=== PATIENT | female | born 1945 | race African-American/Black ===

== ENCOUNTER 2017-04-19 11:38 | Inpatient (IN) | payer MEDICARE, MEDICAID ==
[~2017-04-19] VITALS: Ht 162.6 cm; Wt 58.1 kg
[~2017-04-19 11:38] MED LIST: ALBU90AE IH; ALPR-392 PO; AMLO5TAB4 PO; ANAS1TAB7 PO; CARV3.1242 PO; CLOP75TA16 PO; FAMO20TA8 PO; HYDR-4135 PO; ISOS30TA6 PO; LORA1TAB PO; OMEP40CA34 PO; SEVE800T8 PO; TAP5 PO; TIOT18CA3 INH
[2017-04-19 14:31] LABS: EOSINOPHILS % 1.9 % (0.0-5.0); HEMATOCRIT. 30.7 % (36.0-48.0); HEMOGLOBIN. 9.8 g/dL (12.0-16.0); LYMPHOCYTES % 18.7 % (20.0-50.0); MEAN CORPUSCULAR HEMOGLOBIN 27.9 pg (28.0-32.0); MEAN CORPUSCULAR VOLUME 87.3 fL (81.0-99.0); MEAN PLATELET VOLUME 8.2 fl (7.4-10.4); MONOCYTES % 10.6 % (2.0-8.0); NEUTROPHILS % 67.8 % (40.0-76.0); PLATELET 217 x1000/uL (130-400); RED BLOOD CELL COUNT 3.51 mill/uL (4.2-5.4); RED CELL DISTRIBUTION WIDTH 18.2 % (11.6-14.6)
[2017-04-19 14:40] LABS: INR 1.9; PROTHROMBIN TIME 19.4 sec (9.4-11.6)
[2017-04-19 14:43] LABS: CHLORIDE 102 mEq/L (98-107)
[2017-04-19 14:48] LABS: TROPONIN I 0.06 ng/mL (0.00-0.04)
[2017-04-19 15:14] LABS: HEPATITIS B SURFACE ANTIGEN NEGATIVE
[2017-04-19 15:41] LABS: HEPATITIS B CORE AB IGM NEGATIVE
[2017-04-19 15:43] LABS: HEPATITIS A AB IGM NEGATIVE (NEGATIVE)
[2017-04-19] MEDS ORDERED: ACETAMINOPHEN 325MG TABLET PO PRN (21:15)
[2017-04-19] MEDS ORDERED: CLONIDINE 0.1MG TABLET PO PRN (21:15)
[2017-04-19] MEDS ORDERED: IPRATROPIUM/ALBUTEROL 0.5-3(2.5)MG/3ML NEB HHN PRN (21:15)
[2017-04-19] MEDS ORDERED: MAGNESIUM/ALUMINUM HYDROXIDE/SIMETHICONE 30ML UDC PO PRN (21:15)
[2017-04-19] MEDS ORDERED: LORAZEPAM 0.5MG TABLET PO PRN (21:15)
[2017-04-19] MEDS ORDERED: ONDANSETRON HCL 4MG/2ML VIAL IV PRN (21:15)
[2017-04-19] MEDS ORDERED: DIPHENHYDRAMINE 50MG/ML VIAL IV PRN (21:15)
[2017-04-19 22:10] LABS: T4 FREE 1.46 ng/dL (0.76-1.46)
[2017-04-20] VITALS (7 sets, daily range): BP systolic 106–141; BP diastolic 75–90
[2017-04-20] MEDS: SODIUM CHLORIDE 0.9% INJ 3ML FLUSH IVF SCH ×3 (06:23→22:59)
[2017-04-20] MEDS: SEVELAMER CARBONATE 800 MG TABLET PO SCH ×3 (08:37→18:34)
[2017-04-20] MEDS: CARVEDILOL 3.125 MG TABLET PO SCH ×2 (09:00→20:01)
[2017-04-20] MEDS: PANTOPRAZOLE SODIUM 40 MG/VIAL IV SCH (09:03)
[2017-04-20] MEDS: CLOPIDOGREL 75MG TABLET PO SCH (09:03)
[2017-04-20] MEDS: METHIMAZOLE 5MG TABLET PO SCH (09:04)
[2017-04-20] MEDS: ALPRAZOLAM 0.5 MG TABLET PO SCH ×2 (09:06→17:50)
[2017-04-20] MEDS: NITROGLYCERIN OINT 1GM/INCH UDPKT TD SCH ×2 (15:18→23:00)
[2017-04-21 00:01] VITALS: BP 112/66
[2017-04-21 04:00] VITALS: BP 104/69
[2017-04-21] MEDS: NITROGLYCERIN OINT 1GM/INCH UDPKT TD SCH (05:16)
[2017-04-21] MEDS: SODIUM CHLORIDE 0.9% INJ 3ML FLUSH IVF SCH (05:17)
[2017-04-21 08:00] VITALS: BP 134/79
[2017-04-21] MEDS: SEVELAMER CARBONATE 800 MG TABLET PO SCH (08:19)
[2017-04-21 08:49] VITALS: BP 134/79
[2017-04-21] MEDS: PANTOPRAZOLE SODIUM 40 MG/VIAL IV SCH (09:00)
[2017-04-21] MEDS: CARVEDILOL 3.125 MG TABLET PO SCH (09:12)
[2017-04-21] MEDS: ALPRAZOLAM 0.5 MG TABLET PO SCH (09:12)
[2017-04-21] MEDS: METHIMAZOLE 5MG TABLET PO SCH (09:12)
[2017-04-21] MEDS: CLOPIDOGREL 75MG TABLET PO SCH (09:12)
== END 2017-04-21 09:24 | disposition home or self-care (01) | DRG 291 ==
LOC: ER 11:45 → 7WST 20:07
PROVIDERS: ADMIT Internal Medicine; ATTEND Internal Medicine
DX: I13.2 Hypertensive heart and chronic kidney disease with heart failure and with stage 5 chronic kidney disease, or end stage renal disease (principal); I50.23 Acute on chronic systolic (congestive) heart failure; E11.22 Type 2 diabetes mellitus with diabetic chronic kidney disease; E11.40 Type 2 diabetes mellitus with diabetic neuropathy, unspecified; E88.09 Other disorders of plasma-protein metabolism, not elsewhere classified; I27.20 Pulmonary hypertension, unspecified; N18.6 End stage renal disease; E87.8 Other disorders of electrolyte and fluid balance, not elsewhere classified; E03.9 Hypothyroidism, unspecified; F41.1 Generalized anxiety disorder; I25.10 Atherosclerotic heart disease of native coronary artery without angina pectoris; I25.5 Ischemic cardiomyopathy; K21.9 Gastro-esophageal reflux disease without esophagitis; E05.90 Thyrotoxicosis, unspecified without thyrotoxic crisis or storm; J44.9 Chronic obstructive pulmonary disease, unspecified; I34.0 Nonrheumatic mitral (valve) insufficiency; Z87.891 Personal history of nicotine dependence; Z85.3 Personal history of malignant neoplasm of breast; Z99.2 Dependence on renal dialysis; Z79.899 Other long term (current) drug therapy; Z88.8 Allergy status to other drugs, medicaments and biological substances; Z87.01 Personal history of pneumonia (recurrent); Z87.440 Personal history of urinary (tract) infections
CPT/HCPCS: 36415; 71045; 80053; 82962; 83036; 83735; 83880; 84439; 84443; 84484; 85025; 85610; 86705; 86709; 86803; 87040; 87340; 93005; 99285; C9113; J7030; J7620

== ENCOUNTER 2017-05-11 11:01 | Inpatient (IN) | payer MEDICARE, MEDICAID ==
[~2017-05-11] VITALS: Ht 162.6 cm; Wt 62.1 kg
[2017-05-11 11:50] LABS: BASOPHILS % 0.6 % (0.0-2.0); EOSINOPHILS % 0.1 % (0.0-5.0); HEMATOCRIT. 40.2 % (36.0-48.0); LYMPHOCYTES % 15.6 % (20.0-50.0); MEAN CORPUSCULAR HEMOGLOBIN 29.6 pg (28.0-32.0); MEAN CORPUSCULAR VOLUME 91.4 fL (81.0-99.0); MEAN PLATELET VOLUME 8.8 fl (7.4-10.4); MONOCYTES % 7.4 % (2.0-8.0); NEUTROPHILS % 76.3 % (40.0-76.0); PLATELET 275 x1000/uL (130-400); RED CELL DISTRIBUTION WIDTH 20.3 % (11.6-14.6)
[2017-05-11 11:54] LABS: INR 2.6; PROTHROMBIN TIME 26.7 sec (9.4-11.6)
[2017-05-11 12:00] LABS: CHLORIDE 90 mEq/L (98-107)
[2017-05-11 12:50] LABS: BG BASE EXCESS 2.1 mmol/L (-2.0-2.0); BG CARBOXYHEMOGLOBIN 1.1 % (0.5-1.5); BG DEOXYHEMOGLOBIN 8.4 % (0.0-5.0); BG FRACTION INSPIRED OXYGEN 40; BG METHEMOGLOBIN 0.4 % (0.0-1.5); BG OXYGEN SATURATION 91.5 % (92.0-98.5); BG OXYHEMOGLOBIN 90.1 % (94.0-97.0); BG PCO2 33.6 mmHg (35.0-45.0); BG PO2 65.3 mmHg (75.0-100.0); BG SAMPLE SITE RIGHT BRACHIAL; BG TOTAL HEMOGLOBIN 13.1 g/dL (12.0-18.0); BG VENT MODE NASAL CANNULA
[2017-05-11] MEDS ORDERED: CALCIUM GLUCONATE 100MG/ML 10ML VIAL IV ONE (13:45)
[2017-05-11] MEDS: AMLODIPINE 5MG TABLET PO SCH (17:00)
[2017-05-11] MEDS ORDERED: ENOXAPARIN 40MG/0.4ML SYR SUBCUT SCH (17:15)
[2017-05-11] MEDS ORDERED: ACETAMINOPHEN 325MG TABLET PO PRN (17:15)
[2017-05-11] MEDS ORDERED: GUAIFENESIN 200MG/10ML SUGAR FREE UDC PO PRN (17:15)
[2017-05-11] MEDS ORDERED: DIPHENHYDRAMINE 50MG/ML VIAL IV PRN (17:15)
[2017-05-11] MEDS ORDERED: CLONIDINE 0.1MG TABLET PO PRN (17:15)
[2017-05-11] MEDS ORDERED: MAGNESIUM/ALUMINUM HYDROXIDE/SIMETHICONE 30ML UDC PO PRN (17:15)
[2017-05-11] MEDS ORDERED: DOCUSATE SODIUM 100MG CAPSULE PO PRN (17:15)
[2017-05-11] MEDS ORDERED: ONDANSETRON HCL 4MG/2ML VIAL IV PRN (17:15)
[2017-05-11] MEDS ORDERED: NA PHOS,M-B/NA PHOS,DI-BA ENEMA 118ML PR PRN (21:00)
[2017-05-12] VITALS (9 sets, daily range): BP systolic 102–137; BP diastolic 38–95
[2017-05-12] MEDS ORDERED: HYDROMORPHONE HCL/PF 2MG/ML CPJ IV PRN (05:48)
[2017-05-12] MEDS ORDERED: HYDROCODONE/ACETAMINOPHEN 10/325MG TABLET PO PRN (05:48)
[2017-05-12 07:22] LABS: BASOPHILS % 0.6 % (0.0-2.0); EOSINOPHILS % 0.1 % (0.0-5.0); HEMATOCRIT. 38.6 % (36.0-48.0); HEMOGLOBIN. 12.6 g/dL (12.0-16.0); LYMPHOCYTES % 18.1 % (20.0-50.0); MEAN CORPUSCULAR HEMOGLOBIN 29.6 pg (28.0-32.0); MEAN CORPUSCULAR VOLUME 90.3 fL (81.0-99.0); MEAN PLATELET VOLUME 9.1 fl (7.4-10.4); MONOCYTES % 7.1 % (2.0-8.0); NEUTROPHILS % 74.1 % (40.0-76.0); PLATELET 247 x1000/uL (130-400); RED BLOOD CELL COUNT 4.27 mill/uL (4.2-5.4); RED CELL DISTRIBUTION WIDTH 19.7 % (11.6-14.6)
[2017-05-12 07:31] LABS: CHLORIDE 90 mEq/L (98-107)
[2017-05-12 07:48] LABS: HDL CHOLESTEROL 39 mg/dL (40-59); LDL CHOLESTEROL 63 mg/dL (5-100); T4 FREE 1.26 ng/dL (0.76-1.46)
[2017-05-12] MEDS ORDERED: ASPIRIN 81MG EC TABLET PO SCH (09:00)
[2017-05-12] MEDS ORDERED: HEPARIN SODIUM 1,000 UNIT/1ML VIAL IV SCH (09:45)
[2017-05-12] MEDS: AMLODIPINE 5MG TABLET PO SCH ×2 (12:33→17:00)
[2017-05-12] MEDS: CLOPIDOGREL 75MG TABLET PO SCH (12:33)
[2017-05-12] MEDS: ASPIRIN 81MG EC TABLET PO SCH (12:33)
[2017-05-12] MEDS: ENOXAPARIN 30MG/0.3ML SYR SUBCUT SCH (12:34)
[2017-05-12] MEDS ORDERED: CALCIUM GLUCONATE 100MG/ML 10ML VIAL IV ONE (14:00)
[2017-05-12] MEDS ORDERED: CALCIUM GLUCONATE 2,000 MG in DEXT 5% WATER 80 ML IV SCH (15:00)
[2017-05-12] MEDS ORDERED: ERGO2000 PO (15:20)
[2017-05-12] MEDS ORDERED: HYDR-4135 PO (15:25)
[2017-05-12] MEDS ORDERED: ROSU20TA PO (15:25)
[2017-05-12] MEDS ORDERED: ISOS20TA8 GT (15:25)
[2017-05-12] MEDS ORDERED: METH5TAB68 PO (15:25)
[2017-05-12] MEDS ORDERED: COR3 PO (15:25)
[2017-05-12] MEDS ORDERED: CLOP75TA16 PO (15:25)
[2017-05-12] MEDS ORDERED: SEVE800T8 PO (15:25)
[2017-05-12] MEDS ORDERED: ERGOCALCIFEROL 50000UNITS CAPSULE PO NR (16:00)
[2017-05-12] MEDS: CALCIUM CARBONATE 1250MG TABLET (500MG ELEMENTAL CALCIUM) PO SCH (17:36)
[2017-05-12] MEDS: LORAZEPAM 2MG/ML CPJ IV PRN (18:26)
[2017-05-13] VITALS (17 sets, daily range): BP systolic 103–136; BP diastolic 48–84
[2017-05-13] MEDS: LORAZEPAM 2MG/ML CPJ IV PRN ×2 (00:25→10:50)
[2017-05-13 07:12] LABS: BASOPHILS % 0.8 % (0.0-2.0); EOSINOPHILS % 0.3 % (0.0-5.0); HEMATOCRIT. 37.3 % (36.0-48.0); HEMOGLOBIN. 12.1 g/dL (12.0-16.0); MEAN CORPUSCULAR HEMOGLOBIN 29.1 pg (28.0-32.0); MEAN CORPUSCULAR VOLUME 89.9 fL (81.0-99.0); MEAN PLATELET VOLUME 9.4 fl (7.4-10.4); MONOCYTES % 11.3 % (2.0-8.0); NEUTROPHILS % 62.6 % (40.0-76.0); PLATELET 210 x1000/uL (130-400); RED BLOOD CELL COUNT 4.15 mill/uL (4.2-5.4)
[2017-05-13] MEDS: ENOXAPARIN 30MG/0.3ML SYR SUBCUT SCH (09:07)
[2017-05-13] MEDS: AMLODIPINE 5MG TABLET PO SCH ×2 (09:10→09:16)
[2017-05-13] MEDS: ASPIRIN 81MG EC TABLET PO SCH (09:11)
[2017-05-13] MEDS: CALCIUM CARBONATE 1250MG TABLET (500MG ELEMENTAL CALCIUM) PO SCH ×2 (09:17→17:24)
[2017-05-13] MEDS: CLOPIDOGREL 75MG TABLET PO SCH (09:18)
[2017-05-13] MEDS ORDERED: CALCIUM GLUCONATE 100MG/ML 10ML VIAL IV ONE (13:15)
[2017-05-13] MEDS ORDERED: CALCIUM GLUCONATE 1000 MG in DEXTROSE 5% WATER 100 ML IV NR (14:30)
[2017-05-13] MEDS ORDERED: CLONAZEPAM 0.5MG TABLET PO PRN (15:15)
[2017-05-13] MEDS ORDERED: CALCIUM ACETATE 667MG CAPSULE PO ONE (17:20)
[2017-05-14] VITALS (12 sets, daily range): BP systolic 107–129; BP diastolic 70–83
[2017-05-14] MEDS: LORAZEPAM 2MG/ML CPJ IV PRN ×3 (00:06→20:25)
[2017-05-14 06:43] LABS: AMMONIA 46 uMol/L (<32)
[2017-05-14 06:50] LABS: BASOPHILS % 0.6 % (0.0-2.0); EOSINOPHILS % 0.7 % (0.0-5.0); HEMATOCRIT. 36.7 % (36.0-48.0); LYMPHOCYTES % 27.9 % (20.0-50.0); MEAN CORPUSCULAR HEMOGLOBIN 29.2 pg (28.0-32.0); MEAN CORPUSCULAR VOLUME 89.2 fL (81.0-99.0); MEAN PLATELET VOLUME 9.7 fl (7.4-10.4); MONOCYTES % 10.5 % (2.0-8.0); NEUTROPHILS % 60.3 % (40.0-76.0); PLATELET 219 x1000/uL (130-400); RED BLOOD CELL COUNT 4.11 mill/uL (4.2-5.4); RED CELL DISTRIBUTION WIDTH 19.8 % (11.6-14.6)
[2017-05-14] MEDS: CLOPIDOGREL 75MG TABLET PO SCH (08:18)
[2017-05-14] MEDS: ASPIRIN 81MG EC TABLET PO SCH (08:23)
[2017-05-14] MEDS: CALCIUM CARBONATE 1250MG TABLET (500MG ELEMENTAL CALCIUM) PO SCH ×2 (08:25→18:01)
[2017-05-14] MEDS: ENOXAPARIN 30MG/0.3ML SYR SUBCUT SCH (08:25)
[2017-05-14] MEDS: AMLODIPINE 5MG TABLET PO SCH ×2 (09:00→18:01)
[2017-05-14] MEDS ORDERED: CARVEDILOL 3.125 MG TABLET PO SCH ×2 (10:00→21:00)
[2017-05-14] MEDS ORDERED: CALCIUM GLUCONATE 1,000 MG in DEXT 5% WATER 90 ML IV SCH (11:00)
[2017-05-14] MEDS: LACTULOSE 20G/30ML UDC PO PRN (12:23)
[2017-05-14] MEDS: CALCIUM ACETATE 667MG CAPSULE PO SCH ×2 (13:54→18:00)
[2017-05-14] MEDS: CARVEDILOL 3.125 MG TABLET PO SCH (18:00)
[2017-05-14] MEDS: ATORVASTATIN CALCIUM 10MG TABLET PO SCH (20:18)
[2017-05-15] VITALS (12 sets, daily range): BP systolic 99–147; BP diastolic 60–90
[2017-05-15] MEDS: LORAZEPAM 2MG/ML CPJ IV PRN (01:49)
[2017-05-15] MEDS: IPRATROPIUM/ALBUTEROL 0.5-3(2.5)MG/3ML NEB INH PRN ×2 (02:54→09:06)
[2017-05-15] MEDS: CARVEDILOL 3.125 MG TABLET PO SCH ×2 (06:43→17:50)
[2017-05-15] MEDS: CALCIUM CARBONATE 1250MG TABLET (500MG ELEMENTAL CALCIUM) PO SCH ×2 (09:35→17:47)
[2017-05-15] MEDS: ENOXAPARIN 30MG/0.3ML SYR SUBCUT SCH (09:35)
[2017-05-15] MEDS: CLOPIDOGREL 75MG TABLET PO SCH (09:35)
[2017-05-15] MEDS: ASPIRIN 81MG EC TABLET PO SCH (09:35)
[2017-05-15] MEDS: CALCIUM ACETATE 667MG CAPSULE PO SCH ×3 (09:59→17:47)
[2017-05-15] MEDS: AMLODIPINE 5MG TABLET PO SCH ×2 (10:00→17:50)
[2017-05-15] MEDS ORDERED: IPRATROPIUM/ALBUTEROL 0.5-3(2.5)MG/3ML NEB HHN PRN (11:45)
[2017-05-15] MEDS: IPRATROPIUM/ALBUTEROL 0.5-3(2.5)MG/3ML NEB HHN SCH ×3 (11:56→21:11)
[2017-05-15] MEDS: METHYLPREDNISOLONE SOD SUCC 125 MG/2 ML VIAL IV SCH (11:58)
[2017-05-15 12:03] LABS: BG BASE EXCESS 2.3 mmol/L (-2.0-2.0); BG BILEVEL POS AIRWAY PRESSURE 15/5; BG CARBOXYHEMOGLOBIN 0.6 % (0.5-1.5); BG DEOXYHEMOGLOBIN 4.4 % (0.0-5.0); BG FRACTION INSPIRED OXYGEN 40; BG HCO3 ACT 26.6 mmol/L (22.0-26.0); BG METHEMOGLOBIN 0.3 % (0.0-1.5); BG OXYGEN SATURATION 95.6 % (92.0-98.5); BG OXYHEMOGLOBIN 94.7 % (94.0-97.0); BG PCO2 40.2 mmHg (35.0-45.0); BG PH 7.439 (7.350-7.450); BG PO2 84.2 mmHg (75.0-100.0); BG SAMPLE SITE RIGHT RADIAL; BG TOTAL HEMOGLOBIN 13.6 g/dL (12.0-18.0); BG VENT MODE MASK - BIPAP; BG VENT RATE 16 set
[2017-05-15] MEDS: ATORVASTATIN CALCIUM 10MG TABLET PO SCH (20:14)
[2017-05-16] VITALS (14 sets, daily range): BP systolic 105–119; BP diastolic 71–84
[2017-05-16] MEDS: IPRATROPIUM/ALBUTEROL 0.5-3(2.5)MG/3ML NEB HHN SCH ×6 (00:10→20:24)
[2017-05-16] MEDS: METHYLPREDNISOLONE SOD SUCC 125 MG/2 ML VIAL IV SCH ×4 (00:18→21:58)
[2017-05-16] MEDS: CARVEDILOL 3.125 MG TABLET PO SCH ×2 (06:57→17:56)
[2017-05-16 07:05] LABS: BASOPHILS % 0.3 % (0.0-2.0); EOSINOPHILS % 0.2 % (0.0-5.0); HEMATOCRIT. 37.5 % (36.0-48.0); HEMOGLOBIN. 12.2 g/dL (12.0-16.0); LYMPHOCYTES % 10.6 % (20.0-50.0); MEAN CORPUSCULAR HEMOGLOBIN 29.7 pg (28.0-32.0); MEAN CORPUSCULAR VOLUME 91.4 fL (81.0-99.0); MEAN PLATELET VOLUME 10.5 fl (7.4-10.4); MONOCYTES % 3.1 % (2.0-8.0); NEUTROPHILS % 85.8 % (40.0-76.0); PLATELET 122 x1000/uL (130-400); RED CELL DISTRIBUTION WIDTH 20.2 % (11.6-14.6)
[2017-05-16] MEDS: ASPIRIN 81MG EC TABLET PO SCH (08:28)
[2017-05-16] MEDS: CALCIUM CARBONATE 1250MG TABLET (500MG ELEMENTAL CALCIUM) PO SCH ×2 (08:28→17:43)
[2017-05-16] MEDS: ENOXAPARIN 30MG/0.3ML SYR SUBCUT SCH (08:28)
[2017-05-16] MEDS: AMLODIPINE 5MG TABLET PO SCH ×2 (08:28→17:00)
[2017-05-16] MEDS: CALCIUM ACETATE 667MG CAPSULE PO SCH ×3 (08:28→17:45)
[2017-05-16] MEDS: CLOPIDOGREL 75MG TABLET PO SCH (08:28)
[2017-05-16] MEDS ORDERED: BISACODYL 5MG TABLET PO PRN (11:00)
[2017-05-16] MEDS: DOCUSATE SODIUM 100MG CAPSULE PO SCH ×2 (11:16→17:43)
[2017-05-16] MEDS: LACTULOSE 20G/30ML UDC PO PRN (12:07)
[2017-05-16] MEDS: ALPRAZOLAM 0.25 MG TABLET PO SCH ×4 (15:00→23:26)
[2017-05-16] MEDS: ATORVASTATIN CALCIUM 10MG TABLET PO SCH (21:58)
[2017-05-17] VITALS (12 sets, daily range): BP systolic 106–121; BP diastolic 68–84
[2017-05-17] MEDS: IPRATROPIUM/ALBUTEROL 0.5-3(2.5)MG/3ML NEB HHN SCH ×6 (00:42→19:47)
[2017-05-17] MEDS: CARVEDILOL 3.125 MG TABLET PO SCH ×2 (06:30→17:57)
[2017-05-17] MEDS: CALCIUM ACETATE 667MG CAPSULE PO SCH ×3 (06:30→17:57)
[2017-05-17] MEDS: METHYLPREDNISOLONE SOD SUCC 125 MG/2 ML VIAL IV SCH ×3 (06:31→21:01)
[2017-05-17 07:16] LABS: HEMOGLOBIN. 12.2 g/dL (12.0-16.0); MEAN CORPUSCULAR HEMOGLOBIN 29.7 pg (28.0-32.0); MEAN CORPUSCULAR VOLUME 92.4 fL (81.0-99.0); MEAN PLATELET VOLUME 10.5 fl (7.4-10.4); PLATELET 106 x1000/uL (130-400); RED BLOOD CELL COUNT 4.11 mill/uL (4.2-5.4); RED CELL DISTRIBUTION WIDTH 20.6 % (11.6-14.6)
[2017-05-17] MEDS: DOCUSATE SODIUM 100MG CAPSULE PO SCH ×2 (08:59→17:58)
[2017-05-17] MEDS: CALCIUM CARBONATE 1250MG TABLET (500MG ELEMENTAL CALCIUM) PO SCH ×2 (09:00→17:58)
[2017-05-17] MEDS: AMLODIPINE 5MG TABLET PO SCH ×2 (09:00→17:58)
[2017-05-17] MEDS: ASPIRIN 81MG EC TABLET PO SCH (09:00)
[2017-05-17] MEDS: CLOPIDOGREL 75MG TABLET PO SCH (09:01)
[2017-05-17] MEDS: ENOXAPARIN 30MG/0.3ML SYR SUBCUT SCH (09:02)
[2017-05-17 09:46] LABS: PLATELET ESTIMATE DECREASED
[2017-05-17] MEDS: ALPRAZOLAM 0.25 MG TABLET PO SCH ×3 (10:31→21:01)
[2017-05-17] MEDS ORDERED: HEPARIN SODIUM 1,000 UNIT/1ML VIAL IV NR (15:00)
[2017-05-17] MEDS: ATORVASTATIN CALCIUM 10MG TABLET PO SCH (20:59)
[2017-05-18] VITALS (12 sets, daily range): BP systolic 104–123; BP diastolic 51–92
[2017-05-18] MEDS: IPRATROPIUM/ALBUTEROL 0.5-3(2.5)MG/3ML NEB HHN SCH ×6 (00:09→21:54)
[2017-05-18] MEDS: ALPRAZOLAM 0.25 MG TABLET PO SCH ×4 (06:00→22:00)
[2017-05-18 06:20] LABS: HEMATOCRIT. 40.2 % (36.0-48.0); HEMOGLOBIN. 12.8 g/dL (12.0-16.0); MEAN CORPUSCULAR HEMOGLOBIN 29.6 pg (28.0-32.0); MEAN CORPUSCULAR VOLUME 92.7 fL (81.0-99.0); MEAN PLATELET VOLUME 10.7 fl (7.4-10.4); PLATELET 90 x1000/uL (130-400); RED BLOOD CELL COUNT 4.34 mill/uL (4.2-5.4); RED CELL DISTRIBUTION WIDTH 21.5 % (11.6-14.6)
[2017-05-18] MEDS: CALCIUM ACETATE 667MG CAPSULE PO SCH ×3 (06:22→17:59)
[2017-05-18] MEDS: METHYLPREDNISOLONE SOD SUCC 125 MG/2 ML VIAL IV SCH (06:23)
[2017-05-18] MEDS: CARVEDILOL 3.125 MG TABLET PO SCH ×2 (06:30→18:01)
[2017-05-18] MEDS: CLOPIDOGREL 75MG TABLET PO SCH (09:09)
[2017-05-18] MEDS: DOCUSATE SODIUM 100MG CAPSULE PO SCH ×2 (09:09→18:00)
[2017-05-18] MEDS: CALCIUM CARBONATE 1250MG TABLET (500MG ELEMENTAL CALCIUM) PO SCH ×2 (09:09→18:00)
[2017-05-18] MEDS: ASPIRIN 81MG EC TABLET PO SCH (09:09)
[2017-05-18] MEDS: ENOXAPARIN 30MG/0.3ML SYR SUBCUT SCH (09:09)
[2017-05-18] MEDS: AMLODIPINE 5MG TABLET PO SCH ×2 (09:10→18:02)
[2017-05-18 10:53] LABS: BG BASE EXCESS 3.5 mmol/L (-2.0-2.0); BG CARBOXYHEMOGLOBIN 0.9 % (0.5-1.5); BG DEOXYHEMOGLOBIN 6.6 % (0.0-5.0); BG FRACTION INSPIRED OXYGEN 21; BG HCO3 ACT 24.4 mmol/L (22.0-26.0); BG METHEMOGLOBIN 0.2 % (0.0-1.5); BG OXYGEN SATURATION 93.3 % (92.0-98.5); BG OXYHEMOGLOBIN 92.3 % (94.0-97.0); BG PCO2 27.1 mmHg (35.0-45.0); BG PH 7.573 (7.350-7.450); BG PO2 68.3 mmHg (75.0-100.0); BG SAMPLE SITE RIGHT BRACHIAL; BG TOTAL HEMOGLOBIN 13.6 g/dL (12.0-18.0); BG VENT MODE ROOM AIR
[2017-05-18 12:48] LABS: CREATINE KINASE MB FRACTION 0.7 ng/mL (0.5-3.6)
[2017-05-18 15:15] LABS: PLATELET ESTIMATE DECREASED
[2017-05-18] MEDS: PREDNISONE 20MG TABLET PO SCH (18:02)
[2017-05-18] MEDS: ATORVASTATIN CALCIUM 10MG TABLET PO SCH (22:19)
[2017-05-19] VITALS (10 sets, daily range): BP systolic 108–127; BP diastolic 36–90
[2017-05-19] MEDS: ALPRAZOLAM 0.25 MG TABLET PO SCH ×3 (01:51→12:54)
[2017-05-19] MEDS: IPRATROPIUM/ALBUTEROL 0.5-3(2.5)MG/3ML NEB HHN SCH ×3 (05:50→10:58)
[2017-05-19] MEDS: CARVEDILOL 3.125 MG TABLET PO SCH (06:19)
[2017-05-19] MEDS: CALCIUM ACETATE 667MG CAPSULE PO SCH ×2 (06:19→12:51)
[2017-05-19] MEDS: DOCUSATE SODIUM 100MG CAPSULE PO SCH (08:53)
[2017-05-19] MEDS: AMLODIPINE 5MG TABLET PO SCH (08:53)
[2017-05-19] MEDS: ASPIRIN 81MG EC TABLET PO SCH (08:53)
[2017-05-19] MEDS: PREDNISONE 20MG TABLET PO SCH (08:53)
[2017-05-19] MEDS: CLOPIDOGREL 75MG TABLET PO SCH (08:53)
[2017-05-19] MEDS: CALCIUM CARBONATE 1250MG TABLET (500MG ELEMENTAL CALCIUM) PO SCH (08:53)
[2017-05-19] MEDS: ENOXAPARIN 30MG/0.3ML SYR SUBCUT SCH (08:54)
[2017-05-19] MEDS ORDERED: HEPARIN SODIUM 1,000 UNIT/1ML VIAL IV SCH (13:15)
[2017-05-20] MEDS ORDERED: PREDNISONE 20MG TABLET PO SCH (09:00)
[2017-05-20 09:06] LABS: ANGIOTENSION CONVERTING ENZYME 35 U/L (14-82); ANTI-DNA DOUBLE STRANDED QUANT < 1 IU/mL (0-9); ANTI-NUCLEAR ANTIBODIES DIRECT Negative (Negative); DRVVT LA 70.9 sec (0.0-47.0); PTT-LA 48.5 sec (0.0-51.9)
[2017-05-20 13:07] LABS: ANTI-MYELOPEROXIDASE AB < 9.0 U/mL (0.0-9.0); ANTI-PROTEINASE 3 ABS < 3.5 U/mL (0.0-3.5)
[2017-05-20 14:20] LABS: ATYPICAL P-ANCA <1:20 titer (Neg:<1:20); CYTOPLASMIC C-ANCA <1:20 titer (Neg:<1:20); PERINUCLEAR P-ANCA <1:20 titer (Neg:<1:20)
[2017-05-21 10:09] LABS: LUPUS ANTICOAG INTERPRETATION Comment: (.)
== END 2017-05-19 17:45 | disposition home or self-care (01) | DRG 280 ==
LOC: ER 11:01 → EDBEDREQ 13:46 → EDBEDREQTM 13:46 → 3WST 15:41 → MERGE 15:41 → EDBEDREQSVC 15:42 → EDBEDREQ 15:42 → EDBEDREQTM 15:42 → ENRESERV 05-12 03:45
PROVIDERS: ADMIT Internal Medicine; ATTEND Internal Medicine
PROC: 5A09357 Assistance with Respiratory Ventilation, Less than 24 Consecutive Hours, Continuous Positive Airway Pressure (ICD-10-PCS; 2017-05-12)
PROC: 5A1D70Z Performance of Urinary Filtration, Intermittent, Less than 6 Hours Per Day (ICD-10-PCS; 2017-05-12)
PROC: 4A00X4Z Measurement of Central Nervous Electrical Activity, External Approach (ICD-10-PCS; principal; 2017-05-14)
PROC: 5A1D70Z Performance of Urinary Filtration, Intermittent, Less than 6 Hours Per Day (ICD-10-PCS; 2017-05-14)
PROC: 5A09357 Assistance with Respiratory Ventilation, Less than 24 Consecutive Hours, Continuous Positive Airway Pressure (ICD-10-PCS; 2017-05-15)
PROC: 5A09357 Assistance with Respiratory Ventilation, Less than 24 Consecutive Hours, Continuous Positive Airway Pressure (ICD-10-PCS; 2017-05-17)
PROC: 5A1D70Z Performance of Urinary Filtration, Intermittent, Less than 6 Hours Per Day (ICD-10-PCS; 2017-05-17)
PROC: 5A1D70Z Performance of Urinary Filtration, Intermittent, Less than 6 Hours Per Day (ICD-10-PCS; 2017-05-18)
PROC: 5A1D70Z Performance of Urinary Filtration, Intermittent, Less than 6 Hours Per Day (ICD-10-PCS; 2017-05-19)
DX: I21.4 Non-ST elevation (NSTEMI) myocardial infarction (principal); J96.01 Acute respiratory failure with hypoxia; I13.2 Hypertensive heart and chronic kidney disease with heart failure and with stage 5 chronic kidney disease, or end stage renal disease; E46 Unspecified protein-calorie malnutrition; E87.3 Alkalosis; E11.21 Type 2 diabetes mellitus with diabetic nephropathy; E83.39 Other disorders of phosphorus metabolism; I27.20 Pulmonary hypertension, unspecified; N18.6 End stage renal disease; I50.22 Chronic systolic (congestive) heart failure; E87.5 Hyperkalemia; E83.51 Hypocalcemia; I25.5 Ischemic cardiomyopathy; I25.10 Atherosclerotic heart disease of native coronary artery without angina pectoris; C50.912 Malignant neoplasm of unspecified site of left female breast; E05.90 Thyrotoxicosis, unspecified without thyrotoxic crisis or storm; E11.22 Type 2 diabetes mellitus with diabetic chronic kidney disease; E78.00 Pure hypercholesterolemia, unspecified; E78.5 Hyperlipidemia, unspecified; F41.9 Anxiety disorder, unspecified; G25.3 Myoclonus; I34.0 Nonrheumatic mitral (valve) insufficiency; M94.0 Chondrocostal junction syndrome [Tietze]; T45.1X5A Adverse effect of antineoplastic and immunosuppressive drugs, initial encounter; Z95.5 Presence of coronary angioplasty implant and graft; Z79.02 Long term (current) use of antithrombotics/antiplatelets; Z79.82 Long term (current) use of aspirin; Z79.899 Other long term (current) drug therapy; Z99.2 Dependence on renal dialysis; Z88.8 Allergy status to other drugs, medicaments and biological substances; Z68.23 Body mass index [BMI] 23.0-23.9, adult
CPT/HCPCS: 36415; 36600; 70450; 71045; 78580; 80048; 80053; 80061; 82140; 82164; 82375; 82550; 82553; 82805; 83520; 83735; 84100; 84439; 84443; 84484; 85025; 85379; 85610; 85613; 85651; 85660; 85732; 86038; 86140; 86225; 86256; 93005; 93306; 94640; 94660; 96374; 97162; 99291; A6261; J0610; J1644; J1650; J2060; J2930; J7030; J7060; J7512; J7620

== ENCOUNTER 2017-06-10 08:47 | Inpatient (IN) | payer MEDICARE, MEDICAID ==
[~2017-06-10] VITALS: Ht 162.6 cm; Wt 55.8 kg
[~2017-06-10 08:47] MED LIST changes: +COR3 PO; +ERGO2000 PO; +ISOS20TA8 GT; +METH5TAB68 PO; +ROSU20TA PO
[2017-06-10 10:47] LABS: HEMATOCRIT. 37.4 % (36.0-48.0); HEMOGLOBIN. 12.2 g/dL (12.0-16.0); MEAN CORPUSCULAR HEMOGLOBIN 29.8 pg (28.0-32.0); MEAN CORPUSCULAR VOLUME 91.2 fL (81.0-99.0)
[2017-06-10 10:51] LABS: CHLORIDE 98 mEq/L (98-107)
[2017-06-10] MEDS ORDERED: VANCOMYCIN 1,500 MG in DEXT 5% WATER 250 ML IV SCH (11:15)
[2017-06-10] MEDS ORDERED: PIPERACILLIN/TAZOBACTAM 3.375GM/50ML PREMIX IV ONE (11:15)
[2017-06-10] MEDS ORDERED: LEVOFLOXACIN 750MG PREMIX 150 ML IV ONE (11:15)
[2017-06-10 11:35] LABS: PLATELET ESTIMATE NORMAL
[2017-06-10 11:36] LABS: PLATELET 247 x1000/uL (130-400)
[2017-06-10] MEDS ORDERED: PIPERACILLIN/TAZ 3.375G PREMIX 50 ML IV ONE (12:00)
[2017-06-10] MEDS ORDERED: VANCOMYCIN 1 G PREMIX 200 ML IV ONE (12:00)
[2017-06-10 12:27] LABS: INR 2.3; PROTHROMBIN TIME 24.5 sec (9.4-11.6)
[2017-06-10] MEDS ORDERED: LIDOCAINE HCL/PF 1% 10 MG/ML 5ML VIAL ONE (14:21)
[2017-06-10 17:49] LABS: CLARITY URINE CLEAR (CLEAR); COLOR URINE DARK YELLOW (YELLOW); KETONES URINE TRACE (NEGATIVE); LEUKOCYTE ESTERASE URINE NEGATIVE (NEGATIVE); NITRITE URINE NEGATIVE (NEGATIVE); OCCULT BLOOD URINE 1+ (NEGATIVE); PH URINE 7.5 (4.5-8.0); PROTEIN URINE 3+ (NEGATIVE); SPECIFIC GRAVITY URINE 1.017 (1.005-1.030)
[2017-06-10] MEDS ORDERED: IOHEXOL-350 100 ML BOTTLE ONE (19:22)
[2017-06-10] MEDS ORDERED: DIPHENHYDRAMINE 50MG/ML VIAL IV PRN (20:30)
[2017-06-10] MEDS ORDERED: ONDANSETRON HCL 4MG/2ML VIAL IV PRN (20:30)
[2017-06-10] MEDS ORDERED: IPRATROPIUM/ALBUTEROL 0.5-3(2.5)MG/3ML NEB INH PRN (20:30)
[2017-06-10] MEDS ORDERED: ACETAMINOPHEN 325MG TABLET PO PRN (20:30)
[2017-06-10] MEDS ORDERED: GUAIFENESIN 200MG/10ML SUGAR FREE UDC PO PRN (20:30)
[2017-06-10] MEDS ORDERED: CLONIDINE 0.1MG TABLET PO PRN (20:30)
[2017-06-10] MEDS ORDERED: MAGNESIUM/ALUMINUM HYDROXIDE/SIMETHICONE 30ML UDC PO PRN (20:30)
[2017-06-10 20:40] VITALS: BP 104/81
[2017-06-10 22:00] VITALS: BP 136/81
[2017-06-10] MEDS ORDERED: BISACODYL 10MG SUPP PR PRN (22:45)
[2017-06-10] MEDS: ATORVASTATIN CALCIUM 10MG TABLET PO SCH (22:52)
[2017-06-10] MEDS: AMLODIPINE 2.5MG TABLET PO SCH (22:53)
[2017-06-10] MEDS: ALPRAZOLAM 0.25 MG TABLET PO SCH (22:53)
[2017-06-10] MEDS: NITROGLYCERIN OINT 1GM/INCH UDPKT TD SCH (22:54)
[2017-06-10] MEDS: SODIUM CHLORIDE 0.9% INJ 3ML FLUSH IVF SCH (22:59)
[2017-06-11] VITALS (12 sets, daily range): BP systolic 107–156; BP diastolic 45–110
[2017-06-11] MEDS: IPRATROPIUM/ALBUTEROL 0.5-3(2.5)MG/3ML NEB HHN SCH ×6 (01:02→21:13)
[2017-06-11] MEDS: ALPRAZOLAM 0.25 MG TABLET PO SCH ×3 (06:00→18:18)
[2017-06-11] MEDS: NITROGLYCERIN OINT 1GM/INCH UDPKT TD SCH ×2 (06:02→14:05)
[2017-06-11] MEDS: SODIUM CHLORIDE 0.9% INJ 3ML FLUSH IVF SCH ×3 (06:03→20:32)
[2017-06-11 08:15] LABS: BASOPHILS % 0.4 % (0.0-2.0); EOSINOPHILS % 0.2 % (0.0-5.0); HEMATOCRIT. 31.2 % (36.0-48.0); HEMOGLOBIN. 10.3 g/dL (12.0-16.0); LYMPHOCYTES % 26.9 % (20.0-50.0); MEAN PLATELET VOLUME 9.4 fl (7.4-10.4); MONOCYTES % 14.9 % (2.0-8.0); NEUTROPHILS % 57.6 % (40.0-76.0); PLATELET 221 x1000/uL (130-400); RED BLOOD CELL COUNT 3.55 mill/uL (4.2-5.4); RED CELL DISTRIBUTION WIDTH 21.3 % (11.6-14.6)
[2017-06-11] MEDS ORDERED: AMLODIPINE 5MG TABLET PO SCH (09:00)
[2017-06-11] MEDS ORDERED: CLOPIDOGREL 75MG TABLET PO SCH ×2 (09:00)
[2017-06-11] MEDS: FAMOTIDINE 20MG TABLET PO SCH ×2 (09:52→18:18)
[2017-06-11] MEDS: ANASTROZOLE 1 MG TABLET PO SCH (09:52)
[2017-06-11] MEDS: SEVELAMER CARBONATE 800 MG TABLET PO SCH ×3 (09:52→18:18)
[2017-06-11] MEDS: METHIMAZOLE 5MG TABLET PO SCH (09:52)
[2017-06-11] MEDS: CLOPIDOGREL 75MG TABLET PO SCH (09:52)
[2017-06-11] MEDS: ISOSORBIDE DINITRATE 20MG TABLET GT SCH ×2 (09:56→13:00)
[2017-06-11] MEDS: CARVEDILOL 3.125 MG TABLET PO SCH ×2 (09:56→17:00)
[2017-06-11] MEDS: ASPIRIN 81MG EC TABLET PO SCH (10:01)
[2017-06-11] MEDS: HYDRALAZINE HCL 50MG TABLET PO SCH ×2 (11:00→13:00)
[2017-06-11] MEDS: AMLODIPINE 2.5MG TABLET PO SCH ×2 (11:00→20:32)
[2017-06-11] MEDS ORDERED: HEPARIN SODIUM 1,000 UNIT/1ML VIAL IV NR (16:45)
[2017-06-11] MEDS: HYDRALAZINE HCL 25MG TABLET PO SCH (17:00)
[2017-06-11] MEDS: ATORVASTATIN CALCIUM 10MG TABLET PO SCH (20:31)
[2017-06-11] MEDS: ISOSORBIDE DINITRATE 20MG TABLET PO SCH (22:25)
[2017-06-12] VITALS (12 sets, daily range): BP systolic 86–122; BP diastolic 64–74
[2017-06-12] MEDS: IPRATROPIUM/ALBUTEROL 0.5-3(2.5)MG/3ML NEB HHN SCH ×5 (00:51→20:34)
[2017-06-12] MEDS: ALPRAZOLAM 0.25 MG TABLET PO SCH ×3 (02:01→18:00)
[2017-06-12] MEDS: ISOSORBIDE DINITRATE 20MG TABLET PO SCH ×3 (06:00→21:32)
[2017-06-12] MEDS: SODIUM CHLORIDE 0.9% INJ 3ML FLUSH IVF SCH ×3 (06:28→22:47)
[2017-06-12 07:18] LABS: BASOPHILS % 0.4 % (0.0-2.0); EOSINOPHILS % 1.1 % (0.0-5.0); HEMATOCRIT. 29.7 % (36.0-48.0); HEMOGLOBIN. 9.9 g/dL (12.0-16.0); MEAN CORPUSCULAR HEMOGLOBIN 29.5 pg (28.0-32.0); MEAN PLATELET VOLUME 9.3 fl (7.4-10.4); MONOCYTES % 13.7 % (2.0-8.0); NEUTROPHILS % 62.8 % (40.0-76.0); PLATELET 170 x1000/uL (130-400); RED BLOOD CELL COUNT 3.34 mill/uL (4.2-5.4); RED CELL DISTRIBUTION WIDTH 20.7 % (11.6-14.6)
[2017-06-12] MEDS: ANASTROZOLE 1 MG TABLET PO SCH (09:00)
[2017-06-12] MEDS: CLOPIDOGREL 75MG TABLET PO SCH (09:10)
[2017-06-12] MEDS: METHIMAZOLE 5MG TABLET PO SCH (09:10)
[2017-06-12] MEDS: FAMOTIDINE 20MG TABLET PO SCH (09:10)
[2017-06-12] MEDS: ASPIRIN 81MG EC TABLET PO SCH (09:10)
[2017-06-12] MEDS: CARVEDILOL 3.125 MG TABLET PO SCH ×2 (09:12→17:00)
[2017-06-12] MEDS: AMLODIPINE 2.5MG TABLET PO SCH ×2 (09:12→21:31)
[2017-06-12] MEDS: HYDRALAZINE HCL 25MG TABLET PO SCH ×3 (09:13→17:00)
[2017-06-12] MEDS: SEVELAMER CARBONATE 800 MG TABLET PO SCH ×3 (09:14→17:00)
[2017-06-12] MEDS: FOLIC ACID/VITAMIN B COMP W-C TABLET PO SCH (14:04)
[2017-06-12 14:18] LABS: BG BASE EXCESS 3.8 mmol/L (-2.0-2.0); BG CARBOXYHEMOGLOBIN 0.6 % (0.5-1.5); BG FRACTION INSPIRED OXYGEN 21; BG HCO3 ACT 26.7 mmol/L (22.0-26.0); BG METHEMOGLOBIN 0.2 % (0.0-1.5); BG OXYGEN SATURATION 91.9 % (92.0-98.5); BG OXYHEMOGLOBIN 91.2 % (94.0-97.0); BG PCO2 34.1 mmHg (35.0-45.0); BG PH 7.511 (7.350-7.450); BG PO2 65.8 mmHg (75.0-100.0); BG SAMPLE SITE RIGHT RADIAL; BG TOTAL HEMOGLOBIN 11.5 g/dL (12.0-18.0); BG VENT MODE ROOM AIR
[2017-06-12] MEDS: ATORVASTATIN CALCIUM 10MG TABLET PO SCH (21:30)
[2017-06-13] VITALS (13 sets, daily range): BP systolic 102–120; BP diastolic 65–87
[2017-06-13] MEDS: IPRATROPIUM/ALBUTEROL 0.5-3(2.5)MG/3ML NEB HHN SCH ×6 (00:32→20:03)
[2017-06-13] MEDS: ALPRAZOLAM 0.25 MG TABLET PO SCH ×5 (02:00→22:03)
[2017-06-13] MEDS: SODIUM CHLORIDE 0.9% INJ 3ML FLUSH IVF SCH ×3 (06:27→21:14)
[2017-06-13] MEDS ORDERED: ISOSORBIDE DINITRATE 20MG TABLET PO SCH (06:30)
[2017-06-13 07:26] LABS: BASOPHILS % 0.4 % (0.0-2.0); EOSINOPHILS % 1.3 % (0.0-5.0); HEMATOCRIT. 29.7 % (36.0-48.0); HEMOGLOBIN. 9.8 g/dL (12.0-16.0); LYMPHOCYTES % 24.4 % (20.0-50.0); MEAN CORPUSCULAR HEMOGLOBIN 29.5 pg (28.0-32.0); MEAN CORPUSCULAR VOLUME 89.4 fL (81.0-99.0); MEAN PLATELET VOLUME 9.5 fl (7.4-10.4); MONOCYTES % 11.8 % (2.0-8.0); NEUTROPHILS % 62.1 % (40.0-76.0); PLATELET 163 x1000/uL (130-400); RED BLOOD CELL COUNT 3.32 mill/uL (4.2-5.4)
[2017-06-13] MEDS: FAMOTIDINE 20MG TABLET PO SCH (08:46)
[2017-06-13] MEDS: SEVELAMER CARBONATE 800 MG TABLET PO SCH ×3 (08:46→17:14)
[2017-06-13] MEDS: ASPIRIN 81MG EC TABLET PO SCH (08:46)
[2017-06-13] MEDS: FOLIC ACID/VITAMIN B COMP W-C TABLET PO SCH (08:46)
[2017-06-13] MEDS: AMLODIPINE 2.5MG TABLET PO SCH ×2 (09:00→21:00)
[2017-06-13] MEDS: HYDRALAZINE HCL 25MG TABLET PO SCH ×3 (09:00→17:00)
[2017-06-13] MEDS ORDERED: POTASSIUM CHLORIDE 20MEQ TABLET SR PO NR (09:45)
[2017-06-13] MEDS: ISOSORBIDE DINITRATE 20MG TABLET PO SCH ×2 (13:00→17:00)
[2017-06-13] MEDS: METHIMAZOLE 5MG TABLET PO SCH (13:38)
[2017-06-13] MEDS: CARVEDILOL 3.125 MG TABLET PO SCH ×2 (13:38→17:14)
[2017-06-13] MEDS: CLOPIDOGREL 75MG TABLET PO SCH (13:38)
[2017-06-13] MEDS: ANASTROZOLE 1 MG TABLET PO SCH (14:27)
[2017-06-13] MEDS: ATORVASTATIN CALCIUM 10MG TABLET PO SCH (21:00)
[2017-06-14] VITALS (12 sets, daily range): BP systolic 91–118; BP diastolic 60–90
[2017-06-14] MEDS: IPRATROPIUM/ALBUTEROL 0.5-3(2.5)MG/3ML NEB HHN SCH ×6 (00:55→20:48)
[2017-06-14] MEDS: SODIUM CHLORIDE 0.9% INJ 3ML FLUSH IVF SCH ×3 (06:35→20:47)
[2017-06-14 07:10] LABS: BASOPHILS % 0.5 % (0.0-2.0); EOSINOPHILS % 1.2 % (0.0-5.0); HEMATOCRIT. 30.3 % (36.0-48.0); LYMPHOCYTES % 27.4 % (20.0-50.0); MEAN CORPUSCULAR HEMOGLOBIN 29.6 pg (28.0-32.0); MEAN CORPUSCULAR VOLUME 89.7 fL (81.0-99.0); MEAN PLATELET VOLUME 9.5 fl (7.4-10.4); NEUTROPHILS % 56.9 % (40.0-76.0); PLATELET 165 x1000/uL (130-400); RED BLOOD CELL COUNT 3.37 mill/uL (4.2-5.4)
[2017-06-14] MEDS: ANASTROZOLE 1 MG TABLET PO SCH (08:01)
[2017-06-14] MEDS: FOLIC ACID/VITAMIN B COMP W-C TABLET PO SCH (08:05)
[2017-06-14] MEDS: CARVEDILOL 3.125 MG TABLET PO SCH ×2 (08:05→16:48)
[2017-06-14] MEDS: FAMOTIDINE 20MG TABLET PO SCH (08:05)
[2017-06-14] MEDS: CLOPIDOGREL 75MG TABLET PO SCH (08:05)
[2017-06-14] MEDS: METHIMAZOLE 5MG TABLET PO SCH (08:05)
[2017-06-14] MEDS: ASPIRIN 81MG EC TABLET PO SCH (08:06)
[2017-06-14] MEDS: HYDRALAZINE HCL 25MG TABLET PO SCH ×3 (08:06→16:49)
[2017-06-14] MEDS: SEVELAMER CARBONATE 800 MG TABLET PO SCH ×3 (08:06→16:48)
[2017-06-14] MEDS: ISOSORBIDE DINITRATE 20MG TABLET PO SCH ×3 (08:06→16:49)
[2017-06-14] MEDS: AMLODIPINE 2.5MG TABLET PO SCH ×2 (08:06→20:49)
[2017-06-14] MEDS: ALPRAZOLAM 0.25 MG TABLET PO SCH ×3 (11:18→21:40)
[2017-06-14] MEDS: ATORVASTATIN CALCIUM 10MG TABLET PO SCH (20:47)
[2017-06-15] VITALS (13 sets, daily range): BP systolic 91–134; BP diastolic 53–94
[2017-06-15] MEDS: ALPRAZOLAM 0.25 MG TABLET PO SCH ×3 (02:00→10:00)
[2017-06-15] MEDS: IPRATROPIUM/ALBUTEROL 0.5-3(2.5)MG/3ML NEB HHN SCH ×6 (04:30→21:27)
[2017-06-15] MEDS: SODIUM CHLORIDE 0.9% INJ 3ML FLUSH IVF SCH ×3 (05:44→20:09)
[2017-06-15 06:56] LABS: BASOPHILS % 0.3 % (0.0-2.0); EOSINOPHILS % 0.4 % (0.0-5.0); HEMATOCRIT. 31.2 % (36.0-48.0); HEMOGLOBIN. 10.3 g/dL (12.0-16.0); LYMPHOCYTES % 18.5 % (20.0-50.0); MEAN CORPUSCULAR HEMOGLOBIN 29.5 pg (28.0-32.0); MEAN CORPUSCULAR VOLUME 89.3 fL (81.0-99.0); MEAN PLATELET VOLUME 9.9 fl (7.4-10.4); MONOCYTES % 13.1 % (2.0-8.0); NEUTROPHILS % 67.7 % (40.0-76.0); PLATELET 198 x1000/uL (130-400); RED BLOOD CELL COUNT 3.49 mill/uL (4.2-5.4); RED CELL DISTRIBUTION WIDTH 21.6 % (11.6-14.6)
[2017-06-15] MEDS: CARVEDILOL 3.125 MG TABLET PO SCH (07:54)
[2017-06-15] MEDS: METHIMAZOLE 5MG TABLET PO SCH (07:54)
[2017-06-15] MEDS: FOLIC ACID/VITAMIN B COMP W-C TABLET PO SCH (07:54)
[2017-06-15] MEDS: CLOPIDOGREL 75MG TABLET PO SCH (07:54)
[2017-06-15] MEDS: ASPIRIN 81MG EC TABLET PO SCH (07:54)
[2017-06-15] MEDS: SEVELAMER CARBONATE 800 MG TABLET PO SCH ×3 (07:54→17:31)
[2017-06-15] MEDS: FAMOTIDINE 20MG TABLET PO SCH (07:54)
[2017-06-15] MEDS: HYDRALAZINE HCL 25MG TABLET PO SCH ×3 (08:03→17:00)
[2017-06-15] MEDS: AMLODIPINE 2.5MG TABLET PO SCH ×2 (08:04→21:00)
[2017-06-15] MEDS: ANASTROZOLE 1 MG TABLET PO SCH (08:04)
[2017-06-15] MEDS: ISOSORBIDE DINITRATE 20MG TABLET PO SCH ×3 (08:04→17:00)
[2017-06-15] MEDS ORDERED: HEPARIN SODIUM 1,000 UNIT/1ML VIAL IV NR (10:00)
[2017-06-15 12:03] LABS: BG BASE EXCESS 3.5 mmol/L (-2.0-2.0); BG DEOXYHEMOGLOBIN 17.4 % (0.0-5.0); BG FRACTION INSPIRED OXYGEN 21; BG HCO3 ACT 25.4 mmol/L (22.0-26.0); BG METHEMOGLOBIN 0.2 % (0.0-1.5); BG OXYGEN SATURATION 82.4 % (92.0-98.5); BG OXYHEMOGLOBIN 81.4 % (94.0-97.0); BG PCO2 30.1 mmHg (35.0-45.0); BG PH 7.544 (7.350-7.450); BG PO2 49.2 mmHg (75.0-100.0); BG SAMPLE SITE RIGHT RADIAL; BG TOTAL HEMOGLOBIN 12.6 g/dL (12.0-18.0); BG VENT MODE ROOM AIR
[2017-06-15 14:31] LABS: T4 FREE 1.81 ng/dL (0.76-1.46)
[2017-06-15] MEDS: CARVEDILOL 12.5MG TABLET PO SCH (17:31)
[2017-06-15] MEDS: METHIMAZOLE 10MG TABLET PO SCH (17:31)
[2017-06-15] MEDS: ATORVASTATIN CALCIUM 10MG TABLET PO SCH (20:09)
[2017-06-15] MEDS: ALPRAZOLAM 0.5 MG TABLET PO SCH (20:09)
[2017-06-16] VITALS (12 sets, daily range): BP systolic 95–122; BP diastolic 66–80
[2017-06-16] MEDS: IPRATROPIUM/ALBUTEROL 0.5-3(2.5)MG/3ML NEB HHN SCH ×5 (00:35→16:00)
[2017-06-16] MEDS: SODIUM CHLORIDE 0.9% INJ 3ML FLUSH IVF SCH ×2 (06:10→13:06)
[2017-06-16 07:50] LABS: PREALBUMIN 17.2 mg/dL (20.0-40.0)
[2017-06-16] MEDS: CLOPIDOGREL 75MG TABLET PO SCH (08:09)
[2017-06-16] MEDS: SEVELAMER CARBONATE 800 MG TABLET PO SCH ×3 (08:09→17:00)
[2017-06-16] MEDS: FOLIC ACID/VITAMIN B COMP W-C TABLET PO SCH (08:09)
[2017-06-16] MEDS: ASPIRIN 81MG EC TABLET PO SCH (08:09)
[2017-06-16] MEDS: FAMOTIDINE 20MG TABLET PO SCH (08:09)
[2017-06-16] MEDS: METHIMAZOLE 10MG TABLET PO SCH ×2 (08:09→18:31)
[2017-06-16] MEDS: AMLODIPINE 2.5MG TABLET PO SCH (08:10)
[2017-06-16] MEDS: CARVEDILOL 12.5MG TABLET PO SCH ×2 (08:10→18:31)
[2017-06-16] MEDS: ALPRAZOLAM 0.5 MG TABLET PO SCH (08:10)
[2017-06-16] MEDS: HYDRALAZINE HCL 25MG TABLET PO SCH ×3 (09:00→16:21)
[2017-06-16] MEDS: ISOSORBIDE DINITRATE 20MG TABLET PO SCH ×3 (09:00→16:23)
[2017-06-16] MEDS: ANASTROZOLE 1 MG TABLET PO SCH (10:05)
== END 2017-06-16 20:39 | disposition home health service (06) | DRG 291 ==
LOC: ER 09:43 → 3WST 12:37 → EDBEDREQ 12:44 → EDBEDREQTM 12:44 → ENRESERV 20:11
PROVIDERS: ADMIT Internal Medicine; ATTEND Internal Medicine
PROC: 02HV33Z Insertion of Infusion Device into Superior Vena Cava, Percutaneous Approach (ICD-10-PCS; principal; 2017-06-10)
PROC: B548ZZA Ultrasonography of Superior Vena Cava, Guidance (ICD-10-PCS; 2017-06-10)
PROC: B5181ZA Fluoroscopy of Superior Vena Cava using Low Osmolar Contrast, Guidance (ICD-10-PCS; 2017-06-10)
PROC: 5A09357 Assistance with Respiratory Ventilation, Less than 24 Consecutive Hours, Continuous Positive Airway Pressure (ICD-10-PCS; 2017-06-10)
PROC: 5A09357 Assistance with Respiratory Ventilation, Less than 24 Consecutive Hours, Continuous Positive Airway Pressure (ICD-10-PCS; 2017-06-11)
PROC: 5A1D70Z Performance of Urinary Filtration, Intermittent, Less than 6 Hours Per Day (ICD-10-PCS; 2017-06-11)
PROC: 5A1D70Z Performance of Urinary Filtration, Intermittent, Less than 6 Hours Per Day (ICD-10-PCS; 2017-06-13)
PROC: 5A09357 Assistance with Respiratory Ventilation, Less than 24 Consecutive Hours, Continuous Positive Airway Pressure (ICD-10-PCS; 2017-06-14)
PROC: 5A1D70Z Performance of Urinary Filtration, Intermittent, Less than 6 Hours Per Day (ICD-10-PCS; 2017-06-15)
PROC: 5A1D70Z Performance of Urinary Filtration, Intermittent, Less than 6 Hours Per Day (ICD-10-PCS; 2017-06-16)
DX: I13.2 Hypertensive heart and chronic kidney disease with heart failure and with stage 5 chronic kidney disease, or end stage renal disease (principal); I50.23 Acute on chronic systolic (congestive) heart failure; J96.01 Acute respiratory failure with hypoxia; J18.9 Pneumonia, unspecified organism; E46 Unspecified protein-calorie malnutrition; E11.21 Type 2 diabetes mellitus with diabetic nephropathy; E11.40 Type 2 diabetes mellitus with diabetic neuropathy, unspecified; I27.20 Pulmonary hypertension, unspecified; E83.51 Hypocalcemia; N18.6 End stage renal disease; J44.0 Chronic obstructive pulmonary disease with (acute) lower respiratory infection; C50.912 Malignant neoplasm of unspecified site of left female breast; E05.90 Thyrotoxicosis, unspecified without thyrotoxic crisis or storm; I25.5 Ischemic cardiomyopathy; I25.10 Atherosclerotic heart disease of native coronary artery without angina pectoris; I34.0 Nonrheumatic mitral (valve) insufficiency; E11.65 Type 2 diabetes mellitus with hyperglycemia; D64.9 Anemia, unspecified; E05.20 Thyrotoxicosis with toxic multinodular goiter without thyrotoxic crisis or storm; E11.22 Type 2 diabetes mellitus with diabetic chronic kidney disease; E55.9 Vitamin D deficiency, unspecified; E78.00 Pure hypercholesterolemia, unspecified; E78.5 Hyperlipidemia, unspecified; E87.6 Hypokalemia; F41.1 Generalized anxiety disorder; I25.2 Old myocardial infarction; Z79.02 Long term (current) use of antithrombotics/antiplatelets; Z79.899 Other long term (current) drug therapy; Z95.5 Presence of coronary angioplasty implant and graft; Z99.2 Dependence on renal dialysis; Z80.3 Family history of malignant neoplasm of breast; Z82.49 Family history of ischemic heart disease and other diseases of the circulatory system; Z86.74 Personal history of sudden cardiac arrest; Z88.8 Allergy status to other drugs, medicaments and biological substances; Z68.21 Body mass index [BMI] 21.0-21.9, adult
CPT/HCPCS: 36415; 36569; 36600; 71045; 71275; 77001; 80048; 80053; 80076; 81003; 82306; 82330; 82375; 82533; 82805; 83605; 83735; 84134; 84439; 84443; 84481; 84484; 85025; 85610; 87040; 87086; 93005; 94618; 94640; 94660; 96374; 96375; 97110; 97116; 97162; 97530; 99291; C1725; J1644; J1956; J2543; J3370; J3490; J7030; J7620; Q9967; A4315

== ENCOUNTER 2017-08-10 13:43 | Inpatient (IN) | payer MEDICARE, MEDICAID ==
[~2017-08-10] VITALS: Ht 162.6 cm; Wt 49.0 kg
[2017-08-10] MEDS ORDERED: ACETAMINOPHEN 325MG TABLET PO ONE (14:30)
[2017-08-10 15:18] LABS: BASOPHILS % 1.2 % (0.0-2.0); EOSINOPHILS % 0.9 % (0.0-5.0); HEMATOCRIT. 37.9 % (36.0-48.0); HEMOGLOBIN. 12.4 g/dL (12.0-16.0); LYMPHOCYTES % 25.2 % (20.0-50.0); MEAN CORPUSCULAR HEMOGLOBIN 30.9 pg (28.0-32.0); MEAN CORPUSCULAR VOLUME 94.4 fL (81.0-99.0); MEAN PLATELET VOLUME 9.5 fl (7.4-10.4); MONOCYTES % 7.4 % (2.0-8.0); NEUTROPHILS % 65.3 % (40.0-76.0); PLATELET 214 x1000/uL (130-400); RED BLOOD CELL COUNT 4.01 mill/uL (4.2-5.4); RED CELL DISTRIBUTION WIDTH 20.7 % (11.6-14.6)
[2017-08-10 15:25] LABS: CHLORIDE 89 mEq/L (98-107)
[2017-08-10 15:26] LABS: INR 2.3; PROTHROMBIN TIME 23.6 sec (9.4-11.6)
[2017-08-10] MEDS ORDERED: LORAZEPAM 1MG TABLET PO ONE (16:15)
[2017-08-10 21:00] VITALS: BP 127/82
[2017-08-10] MEDS ORDERED: CLONIDINE 0.1MG TABLET PO PRN (21:45)
[2017-08-10] MEDS ORDERED: ONDANSETRON HCL 4MG/2ML VIAL IV PRN (21:45)
[2017-08-11] VITALS: BP 114/86
[2017-08-11 00:31] LABS: CREATINE KINASE MB FRACTION 1.4 ng/mL (0.5-3.6)
[2017-08-11] MEDS ORDERED: TRAM150C25 PO (00:38)
[2017-08-11] MEDS ORDERED: FLUT15.88 BOTHNSTRLS (00:38)
[2017-08-11 04:00] VITALS: BP 118/85
[2017-08-11 07:32] LABS: BASOPHILS % 0.4 % (0.0-2.0); HEMATOCRIT. 35.8 % (36.0-48.0); HEMOGLOBIN. 11.7 g/dL (12.0-16.0); LYMPHOCYTES % 18.6 % (20.0-50.0); MEAN CORPUSCULAR HEMOGLOBIN 31.2 pg (28.0-32.0); MEAN CORPUSCULAR VOLUME 95.1 fL (81.0-99.0); MEAN PLATELET VOLUME 10.2 fl (7.4-10.4); MONOCYTES % 7.4 % (2.0-8.0); NEUTROPHILS % 73.6 % (40.0-76.0); PLATELET 222 x1000/uL (130-400); RED BLOOD CELL COUNT 3.76 mill/uL (4.2-5.4)
[2017-08-11 08:00] VITALS: BP 109/81
[2017-08-11 08:32] LABS: CREATINE KINASE MB FRACTION 1.7 ng/mL (0.5-3.6)
[2017-08-11] MEDS ORDERED: ALPRAZOLAM 0.5 MG TABLET PO NR (11:30)
[2017-08-11 12:00] VITALS: BP 121/86
[2017-08-11] MEDS ORDERED: DEXTROSE 50% WATER 50ML SYRINGE IV PRN ×2 (15:30)
[2017-08-11 16:00] VITALS: BP 102/74
[2017-08-11] MEDS: INSULIN LISPRO 100 UNITS/ML SUBCUT SCH ×2 (16:45→21:00)
[2017-08-11] MEDS ORDERED: BLOOD SUGAR DIAGNOSTIC STRIP TEST SCH ×2 (17:40)
[2017-08-11] MEDS: BLOOD SUGAR DIAGNOSTIC STRIP TEST SCH ×2 (17:55→21:00)
[2017-08-11] MEDS: IPRATROPIUM/ALBUTEROL 0.5-3(2.5)MG/3ML NEB INH PRN (18:39)
[2017-08-11 20:00] VITALS: BP 111/75
[2017-08-11] MEDS: CARVEDILOL 3.125 MG TABLET PO SCH (21:00)
[2017-08-11] MEDS: DOCUSATE SODIUM 100MG CAPSULE PO PRN (21:07)
[2017-08-12] VITALS: BP 100/74
[2017-08-12 04:00] VITALS: BP 109/79
[2017-08-12 06:14] LABS: BASOPHILS % 0.3 % (0.0-2.0); EOSINOPHILS % 0.3 % (0.0-5.0); HEMATOCRIT. 41.1 % (36.0-48.0); HEMOGLOBIN. 13.2 g/dL (12.0-16.0); LYMPHOCYTES % 25.4 % (20.0-50.0); MEAN CORPUSCULAR HEMOGLOBIN 31.3 pg (28.0-32.0); MEAN CORPUSCULAR VOLUME 97.3 fL (81.0-99.0); MONOCYTES % 6.3 % (2.0-8.0); NEUTROPHILS % 67.7 % (40.0-76.0); PLATELET 226 x1000/uL (130-400); RED BLOOD CELL COUNT 4.22 mill/uL (4.2-5.4); RED CELL DISTRIBUTION WIDTH 20.4 % (11.6-14.6)
[2017-08-12] MEDS: DEXTROSE 50% WATER 50ML SYRINGE IV PRN ×2 (06:22→19:05)
[2017-08-12] MEDS: BLOOD SUGAR DIAGNOSTIC STRIP TEST SCH ×3 (07:28→18:27)
[2017-08-12] MEDS: INSULIN LISPRO 100 UNITS/ML SUBCUT SCH ×4 (07:28→21:00)
[2017-08-12 08:00] VITALS: BP 104/68
[2017-08-12] MEDS: CARVEDILOL 3.125 MG TABLET PO SCH ×2 (09:00→21:34)
[2017-08-12 12:00] VITALS: BP 110/70
[2017-08-12] MEDS: DOCUSATE SODIUM 100MG CAPSULE PO PRN (13:02)
[2017-08-12] MEDS ORDERED: NA PHOS,M-B/NA PHOS,DI-BA ENEMA 118ML PR SCH (13:15)
[2017-08-12] MEDS: LACTULOSE 20G/30ML UDC PO PRN (14:01)
[2017-08-12] MEDS: ALPRAZOLAM 0.5 MG TABLET PO PRN (14:01)
[2017-08-12] MEDS: METHIMAZOLE 5MG TABLET PO SCH ×2 (14:01→18:43)
[2017-08-12 15:44] LABS: INR 2.9; PROTHROMBIN TIME 29.9 sec (9.4-11.6)
[2017-08-12 16:00] VITALS: BP 115/68
[2017-08-12 20:00] VITALS: BP 107/71
[2017-08-13] VITALS (11 sets, daily range): BP systolic 73–140; BP diastolic 44–82
[2017-08-13] MEDS: IPRATROPIUM/ALBUTEROL 0.5-3(2.5)MG/3ML NEB INH PRN ×2 (00:25→21:05)
[2017-08-13] MEDS: BLOOD SUGAR DIAGNOSTIC STRIP TEST SCH ×11 (02:00→20:38)
[2017-08-13 07:41] LABS: BG BASE EXCESS 1.5 mmol/L (-2.0-2.0); BG CARBOXYHEMOGLOBIN 0.3 % (0.5-1.5); BG FRACTION INSPIRED OXYGEN 28; BG HCO3 ACT 23.1 mmol/L (22.0-26.0); BG OXYHEMOGLOBIN 95.7 % (94.0-97.0); BG PCO2 27.7 mmHg (35.0-45.0); BG PH 7.539 (7.350-7.450); BG PO2 85.3 mmHg (75.0-100.0); BG SAMPLE SITE RIGHT BRACHIAL; BG TOTAL HEMOGLOBIN 12.3 g/dL (12.0-18.0); BG VENT MODE NASAL CANNULA
[2017-08-13] MEDS: INSULIN LISPRO 100 UNITS/ML SUBCUT SCH ×4 (08:10→20:37)
[2017-08-13] MEDS: CARVEDILOL 3.125 MG TABLET PO SCH ×2 (09:00→20:37)
[2017-08-13] MEDS: METHIMAZOLE 5MG TABLET PO SCH ×3 (09:49→17:46)
[2017-08-13] MEDS ORDERED: METHYLPREDNISOLONE SOD SUCC 125 MG/2 ML VIAL IV SCH (12:00)
[2017-08-13] MEDS ORDERED: LIDOCAINE HCL/PF 1% 10 MG/ML 5ML VIAL ONE (12:35)
[2017-08-13] MEDS ORDERED: HEPARIN SODIUM 1,000 UNIT/1ML VIAL IV NR (13:45)
[2017-08-13] MEDS: DEXTROSE 50% WATER 50ML SYRINGE IV PRN (17:53)
[2017-08-13] MEDS ORDERED: DIPHENHYDRAMINE 50MG/ML VIAL IM PRN (20:30)
[2017-08-13] MEDS: ALPRAZOLAM 0.5 MG TABLET PO PRN (20:37)
[2017-08-14] VITALS (17 sets, daily range): BP systolic 77–126; BP diastolic 42–78
[2017-08-14 06:27] LABS: BASOPHILS % 0.9 % (0.0-2.0); EOSINOPHILS % 1.1 % (0.0-5.0); HEMATOCRIT. 34.1 % (36.0-48.0); HEMOGLOBIN. 11.3 g/dL (12.0-16.0); MEAN CORPUSCULAR HEMOGLOBIN 31.3 pg (28.0-32.0); MEAN CORPUSCULAR VOLUME 94.8 fL (81.0-99.0); MEAN PLATELET VOLUME 10.1 fl (7.4-10.4); MONOCYTES % 10.9 % (2.0-8.0); NEUTROPHILS % 56.1 % (40.0-76.0); PLATELET 181 x1000/uL (130-400); RED CELL DISTRIBUTION WIDTH 20.5 % (11.6-14.6)
[2017-08-14] MEDS: BLOOD SUGAR DIAGNOSTIC STRIP TEST SCH ×4 (07:30→21:55)
[2017-08-14] MEDS: INSULIN LISPRO 100 UNITS/ML SUBCUT SCH ×4 (08:00→21:00)
[2017-08-14] MEDS: IPRATROPIUM/ALBUTEROL 0.5-3(2.5)MG/3ML NEB INH PRN (08:16)
[2017-08-14] MEDS: CARVEDILOL 3.125 MG TABLET PO SCH ×2 (08:41→21:55)
[2017-08-14] MEDS: METHIMAZOLE 5MG TABLET PO SCH ×3 (08:41→18:20)
[2017-08-14] MEDS: DEXTROSE 50% WATER 50ML SYRINGE IV PRN (08:41)
[2017-08-14] MEDS: ALPRAZOLAM 0.5 MG TABLET PO PRN ×2 (09:22→21:54)
[2017-08-14] MEDS ORDERED: HYDROCORTISONE SOD SUCCINATE 100 MG/2 ML VIAL IV NR (10:00)
[2017-08-14 17:37] LABS: BASOPHILS % 0.3 % (0.0-2.0); EOSINOPHILS % 0.3 % (0.0-5.0); HEMATOCRIT. 34.5 % (36.0-48.0); HEMOGLOBIN. 11.5 g/dL (12.0-16.0); LYMPHOCYTES % 13.2 % (20.0-50.0); MEAN CORPUSCULAR HEMOGLOBIN 31.3 pg (28.0-32.0); MEAN PLATELET VOLUME 10.1 fl (7.4-10.4); MONOCYTES % 5.9 % (2.0-8.0); NEUTROPHILS % 80.3 % (40.0-76.0); PLATELET 191 x1000/uL (130-400); RED BLOOD CELL COUNT 3.67 mill/uL (4.2-5.4); RED CELL DISTRIBUTION WIDTH 20.6 % (11.6-14.6)
[2017-08-14 17:43] LABS: PROTHROMBIN TIME 20.7 sec (9.4-11.6)
[2017-08-14 18:05] LABS: T4 FREE 1.08 ng/dL (0.76-1.46)
[2017-08-15] VITALS (19 sets, daily range): BP systolic 75–126; BP diastolic 35–91
[2017-08-15 07:27] LABS: INR 2.3
[2017-08-15] MEDS: BLOOD SUGAR DIAGNOSTIC STRIP TEST SCH ×4 (07:30→21:21)
[2017-08-15 07:59] LABS: BASOPHILS % 0.6 % (0.0-2.0); EOSINOPHILS % 0.4 % (0.0-5.0); HEMATOCRIT. 34.1 % (36.0-48.0); HEMOGLOBIN. 11.2 g/dL (12.0-16.0); LYMPHOCYTES % 27.6 % (20.0-50.0); MEAN CORPUSCULAR HEMOGLOBIN 31.9 pg (28.0-32.0); MEAN CORPUSCULAR VOLUME 96.9 fL (81.0-99.0); MEAN PLATELET VOLUME 10.2 fl (7.4-10.4); MONOCYTES % 13.4 % (2.0-8.0); PLATELET 184 x1000/uL (130-400); RED BLOOD CELL COUNT 3.52 mill/uL (4.2-5.4); RED CELL DISTRIBUTION WIDTH 20.3 % (11.6-14.6)
[2017-08-15] MEDS: INSULIN LISPRO 100 UNITS/ML SUBCUT SCH ×4 (08:00→21:00)
[2017-08-15] MEDS: CARVEDILOL 3.125 MG TABLET PO SCH ×3 (09:00→21:06)
[2017-08-15] MEDS: PREDNISONE 20MG TABLET PO SCH ×2 (09:00→13:25)
[2017-08-15] MEDS ORDERED: LIDOCAINE HCL/PF 1% 2ML VIAL ONE (09:12)
[2017-08-15] MEDS: ALPRAZOLAM 0.5 MG TABLET PO PRN ×2 (10:02→22:06)
[2017-08-15] MEDS: METHIMAZOLE 5MG TABLET PO SCH ×3 (10:03→17:08)
[2017-08-15] MEDS ORDERED: HEPARIN SODIUM 1,000 UNIT/1ML VIAL IV NR (12:45)
[2017-08-15] MEDS: IPRATROPIUM/ALBUTEROL 0.5-3(2.5)MG/3ML NEB INH PRN (16:33)
[2017-08-15 17:26] LABS: BG CARBOXYHEMOGLOBIN 0.1 % (0.5-1.5); BG DEOXYHEMOGLOBIN 6.8 % (0.0-5.0); BG FRACTION INSPIRED OXYGEN 32; BG HCO3 ACT 23.7 mmol/L (22.0-26.0); BG METHEMOGLOBIN 0.5 % (0.0-1.5); BG OXYGEN SATURATION 93.2 % (92.0-98.5); BG OXYHEMOGLOBIN 92.6 % (94.0-97.0); BG PCO2 32.1 mmHg (35.0-45.0); BG PH 7.487 (7.350-7.450); BG PO2 71.6 mmHg (75.0-100.0); BG SAMPLE SITE LEFT RADIAL; BG VENT MODE NASAL CANNULA
[2017-08-16] VITALS (19 sets, daily range): BP systolic 90–120; BP diastolic 32–86
[2017-08-16] MEDS: BLOOD SUGAR DIAGNOSTIC STRIP TEST SCH ×4 (06:32→21:23)
[2017-08-16 06:57] LABS: BASOPHILS % 0.5 % (0.0-2.0); HEMATOCRIT. 34.5 % (36.0-48.0); HEMOGLOBIN. 11.4 g/dL (12.0-16.0); LYMPHOCYTES % 30.4 % (20.0-50.0); MEAN CORPUSCULAR HEMOGLOBIN 31.9 pg (28.0-32.0); MEAN CORPUSCULAR VOLUME 96.6 fL (81.0-99.0); MEAN PLATELET VOLUME 10.8 fl (7.4-10.4); MONOCYTES % 10.4 % (2.0-8.0); NEUTROPHILS % 58.7 % (40.0-76.0); PLATELET 185 x1000/uL (130-400); RED BLOOD CELL COUNT 3.57 mill/uL (4.2-5.4); RED CELL DISTRIBUTION WIDTH 21.2 % (11.6-14.6)
[2017-08-16 07:18] LABS: INR 1.7; PROTHROMBIN TIME 17.4 sec (9.4-11.6)
[2017-08-16] MEDS: INSULIN LISPRO 100 UNITS/ML SUBCUT SCH ×4 (07:54→21:00)
[2017-08-16] MEDS: METHIMAZOLE 5MG TABLET PO SCH ×3 (09:13→17:56)
[2017-08-16] MEDS: CARVEDILOL 3.125 MG TABLET PO SCH ×2 (09:13→20:44)
[2017-08-16] MEDS: ALPRAZOLAM 0.5 MG TABLET PO PRN ×2 (10:08→21:17)
[2017-08-16] MEDS: DEXTROSE 50% WATER 50ML SYRINGE IV PRN (12:44)
[2017-08-16] MEDS ORDERED: LIDOCAINE HCL/PF 1% 2ML VIAL ONE (13:34)
[2017-08-16 16:55] LABS: BG BASE EXCESS 5.1 mmol/L (-2.0-2.0); BG BILEVEL POS AIRWAY PRESSURE 15/5; BG CARBOXYHEMOGLOBIN 0.5 % (0.5-1.5); BG DEOXYHEMOGLOBIN 2.3 % (0.0-5.0); BG FRACTION INSPIRED OXYGEN 35; BG HCO3 ACT 27.6 mmol/L (22.0-26.0); BG METHEMOGLOBIN 0.3 % (0.0-1.5); BG OXYGEN SATURATION 97.7 % (92.0-98.5); BG OXYHEMOGLOBIN 96.9 % (94.0-97.0); BG PCO2 33.4 mmHg (35.0-45.0); BG PH 7.535 (7.350-7.450); BG PO2 115.3 mmHg (75.0-100.0); BG SAMPLE SITE RIGHT RADIAL; BG TOTAL HEMOGLOBIN 11.7 g/dL (12.0-18.0); BG VENT MODE MASK - BIPAP; BG VENT RATE 14 set
[2017-08-16] MEDS: DOCUSATE SODIUM 100MG CAPSULE PO PRN (17:56)
[2017-08-16] MEDS: IPRATROPIUM/ALBUTEROL 0.5-3(2.5)MG/3ML NEB INH PRN (20:02)
[2017-08-17] VITALS (40 sets, daily range): BP systolic 70–146; BP diastolic 16–94
[2017-08-17 05:46] LABS: INR 1.9; PROTHROMBIN TIME 19.6 sec (9.4-11.6)
[2017-08-17 06:09] LABS: BASOPHILS % 0.4 % (0.0-2.0); EOSINOPHILS % 0.5 % (0.0-5.0); HEMATOCRIT. 37.4 % (36.0-48.0); HEMOGLOBIN. 12.3 g/dL (12.0-16.0); LYMPHOCYTES % 33.9 % (20.0-50.0); MEAN CORPUSCULAR HEMOGLOBIN 31.8 pg (28.0-32.0); MEAN CORPUSCULAR VOLUME 96.7 fL (81.0-99.0); MEAN PLATELET VOLUME 10.4 fl (7.4-10.4); MONOCYTES % 11.3 % (2.0-8.0); NEUTROPHILS % 53.9 % (40.0-76.0); PLATELET 164 x1000/uL (130-400); RED BLOOD CELL COUNT 3.87 mill/uL (4.2-5.4)
[2017-08-17] MEDS: INSULIN LISPRO 100 UNITS/ML SUBCUT SCH ×3 (06:59→21:00)
[2017-08-17] MEDS: BLOOD SUGAR DIAGNOSTIC STRIP TEST SCH ×3 (06:59→21:41)
[2017-08-17] MEDS: METHIMAZOLE 5MG TABLET PO SCH ×3 (09:04→17:00)
[2017-08-17] MEDS: CARVEDILOL 3.125 MG TABLET PO SCH ×2 (09:04→21:00)
[2017-08-17] MEDS: PREDNISONE 20MG TABLET PO SCH (09:05)
[2017-08-17] MEDS ORDERED: SODIUM BICARBONATE 4% (2.4MEQ) 5ML VIAL IV ONE (09:51)
[2017-08-17] MEDS ORDERED: PROPOFOL 10MG/ML 100ML 100 ML IV PRN (12:00)
[2017-08-17 13:03] LABS: BG BASE EXCESS 2.4 mmol/L (-2.0-2.0); BG BILEVEL POS AIRWAY PRESSURE 15/5; BG CARBOXYHEMOGLOBIN 0.5 % (0.5-1.5); BG DEOXYHEMOGLOBIN 0.4 % (0.0-5.0); BG FRACTION INSPIRED OXYGEN 100; BG HCO3 ACT 24.8 mmol/L (22.0-26.0); BG METHEMOGLOBIN 0.3 % (0.0-1.5); BG OXYGEN SATURATION 99.6 % (92.0-98.5); BG OXYHEMOGLOBIN 98.8 % (94.0-97.0); BG PCO2 31.4 mmHg (35.0-45.0); BG PH 7.515 (7.350-7.450); BG PO2 287.6 mmHg (75.0-100.0); BG SAMPLE SITE RIGHT RADIAL; BG TOTAL HEMOGLOBIN 12.4 g/dL (12.0-18.0); BG VENT MODE MASK - BIPAP; BG VENT RATE 14 set
[2017-08-17] MEDS ORDERED: LIDOCAINE HCL/PF 1% 2ML VIAL ONE (13:32)
[2017-08-17] MEDS: IPRATROPIUM/ALBUTEROL 0.5-3(2.5)MG/3ML NEB INH PRN (13:32)
[2017-08-17] MEDS ORDERED: NOREPINEPHRINE 16 MG in DEXT 5% WATER 234 ML IV PRN (14:00)
[2017-08-17] MEDS ORDERED: PHYTONADIONE 10MG/ML AMP SUBCUT SCH (14:30)
[2017-08-17] MEDS: DEXTROSE 50% WATER 50ML SYRINGE IV PRN (18:42)
[2017-08-17] MEDS ORDERED: HYDROCODONE/ACETAMINOPHEN 5/325MG TABLET PO PRN (19:15)
[2017-08-17] MEDS: DEXT 5%/0.45% NACL 1000ML 1,000 ML IV SCH (21:50)
[2017-08-18] VITALS (93 sets, daily range): BP systolic 85–135; BP diastolic 35–94
[2017-08-18] MEDS: ACETAMINOPHEN 325MG TABLET PO PRN ×2 (03:13→21:44)
[2017-08-18 05:55] LABS: BASOPHILS % 0.2 % (0.0-2.0); HEMATOCRIT. 34.6 % (36.0-48.0); HEMOGLOBIN. 11.4 g/dL (12.0-16.0); LYMPHOCYTES % 13.1 % (20.0-50.0); MEAN CORPUSCULAR VOLUME 97.2 fL (81.0-99.0); MEAN PLATELET VOLUME 9.8 fl (7.4-10.4); MONOCYTES % 12.2 % (2.0-8.0); NEUTROPHILS % 74.5 % (40.0-76.0); PLATELET 179 x1000/uL (130-400); RED BLOOD CELL COUNT 3.56 mill/uL (4.2-5.4); RED CELL DISTRIBUTION WIDTH 21.9 % (11.6-14.6)
[2017-08-18] MEDS: INSULIN LISPRO 100 UNITS/ML SUBCUT SCH ×4 (08:20→21:00)
[2017-08-18] MEDS: BLOOD SUGAR DIAGNOSTIC STRIP TEST SCH ×4 (08:41→21:20)
[2017-08-18] MEDS: CARVEDILOL 3.125 MG TABLET PO SCH ×2 (09:00→21:00)
[2017-08-18] MEDS ORDERED: NOREPINEPHRINE 16 MG in DEXT 5% WATER 234 ML IV SCH (09:45)
[2017-08-18] MEDS: METHIMAZOLE 5MG TABLET PO SCH ×3 (10:05→18:34)
[2017-08-18] MEDS: PREDNISONE 20MG TABLET PO SCH (10:05)
[2017-08-18 10:16] LABS: BG BASE EXCESS 4.8 mmol/L (-2.0-2.0); BG BILEVEL POS AIRWAY PRESSURE 15/5; BG CARBOXYHEMOGLOBIN 0.5 % (0.5-1.5); BG DEOXYHEMOGLOBIN 7.9 % (0.0-5.0); BG HCO3 ACT 28.7 mmol/L (22.0-26.0); BG METHEMOGLOBIN 0.2 % (0.0-1.5); BG OXYHEMOGLOBIN 91.4 % (94.0-97.0); BG PCO2 39.8 mmHg (35.0-45.0); BG PH 7.476 (7.350-7.450); BG PO2 71.6 mmHg (75.0-100.0); BG SAMPLE SITE RIGHT RADIAL; BG TOTAL HEMOGLOBIN 12.1 g/dL (12.0-18.0); BG VENT MODE MASK - BIPAP; BG VENT RATE 14 set
[2017-08-18] MEDS: DEXT 5%/0.45% NACL 1000ML 1,000 ML IV SCH (16:26)
[2017-08-18] MEDS: LACTULOSE 20G/30ML UDC PO PRN (21:25)
[2017-08-19] VITALS (113 sets, daily range): BP systolic 72–169; BP diastolic 25–128
[2017-08-19 04:34] LABS: BG BASE EXCESS -2.9 mmol/L (-2.0-2.0); BG BILEVEL POS AIRWAY PRESSURE 15/5; BG CARBOXYHEMOGLOBIN 0.8 % (0.5-1.5); BG DEOXYHEMOGLOBIN 25.8 % (0.0-5.0); BG FRACTION INSPIRED OXYGEN 100; BG HCO3 ACT 20.2 mmol/L (22.0-26.0); BG METHEMOGLOBIN 0.2 % (0.0-1.5); BG OXYGEN SATURATION 73.9 % (92.0-98.5); BG OXYHEMOGLOBIN 73.2 % (94.0-97.0); BG PCO2 30.2 mmHg (35.0-45.0); BG PH 7.443 (7.350-7.450); BG PO2 44.2 mmHg (75.0-100.0); BG SAMPLE SITE RIGHT RADIAL; BG TOTAL HEMOGLOBIN 12.5 g/dL (12.0-18.0); BG VENT MODE MASK - BIPAP
[2017-08-19 05:50] LABS: BASOPHILS % 0.1 % (0.0-2.0); HEMOGLOBIN. 12.5 g/dL (12.0-16.0); LYMPHOCYTES % 13.6 % (20.0-50.0); MEAN CORPUSCULAR HEMOGLOBIN 31.9 pg (28.0-32.0); MEAN CORPUSCULAR VOLUME 99.6 fL (81.0-99.0); MEAN PLATELET VOLUME 10.2 fl (7.4-10.4); MONOCYTES % 12.6 % (2.0-8.0); NEUTROPHILS % 73.7 % (40.0-76.0); PLATELET 105 x1000/uL (130-400); RED BLOOD CELL COUNT 3.92 mill/uL (4.2-5.4); RED CELL DISTRIBUTION WIDTH 24.3 % (11.6-14.6)
[2017-08-19] MEDS: PROPOFOL 10MG/ML 100ML 100 ML IV PRN ×3 (05:59→20:42)
[2017-08-19 06:29] LABS: BG BASE EXCESS -4.7 mmol/L (-2.0-2.0); BG CARBOXYHEMOGLOBIN 0.7 % (0.5-1.5); BG DEOXYHEMOGLOBIN 23.3 % (0.0-5.0); BG FRACTION INSPIRED OXYGEN 100; BG HCO3 ACT 18.9 mmol/L (22.0-26.0); BG METHEMOGLOBIN 0.2 % (0.0-1.5); BG OXYGEN SATURATION 76.5 % (92.0-98.5); BG OXYHEMOGLOBIN 75.8 % (94.0-97.0); BG PCO2 30.6 mmHg (35.0-45.0); BG PH 7.409 (7.350-7.450); BG PO2 49.2 mmHg (75.0-100.0); BG SAMPLE SITE RIGHT RADIAL; BG TIDAL VOLUME(mL) 500 mL; BG TOTAL HEMOGLOBIN 12.2 g/dL (12.0-18.0); BG VENT MODE VENT - A/C; BG VENT RATE 16 set
[2017-08-19] MEDS ORDERED: PIPERACILLIN/TAZ 3.375G PREMIX 50 ML IV SCH (08:15)
[2017-08-19] MEDS: NOREPINEPHRINE 4 MG in DEXT 5% WATER 246 ML IV PRN (08:32)
[2017-08-19 08:34] LABS: BG BASE EXCESS -4.1 mmol/L (-2.0-2.0); BG CARBOXYHEMOGLOBIN 0.7 % (0.5-1.5); BG DEOXYHEMOGLOBIN 28.5 % (0.0-5.0); BG FRACTION INSPIRED OXYGEN 100; BG HCO3 ACT 19.5 mmol/L (22.0-26.0); BG METHEMOGLOBIN 0.3 % (0.0-1.5); BG OXYGEN SATURATION 71.2 % (92.0-98.5); BG OXYHEMOGLOBIN 70.5 % (94.0-97.0); BG PH 7.416 (7.350-7.450); BG PO2 44.1 mmHg (75.0-100.0); BG SAMPLE SITE RIGHT RADIAL; BG TIDAL VOLUME(mL) 500 mL; BG TOTAL HEMOGLOBIN 12.2 g/dL (12.0-18.0); BG VENT MODE VENT - A/C; BG VENT RATE 16 set
[2017-08-19 09:00] LABS: PLATELET ESTIMATE SLIGHTLY DECREASED
[2017-08-19] MEDS: INSULIN LISPRO 100 UNITS/ML SUBCUT SCH ×3 (09:00→18:20)
[2017-08-19] MEDS: CARVEDILOL 3.125 MG TABLET PO SCH ×2 (09:00→20:50)
[2017-08-19] MEDS: BLOOD SUGAR DIAGNOSTIC STRIP TEST SCH ×3 (09:00→17:50)
[2017-08-19] MEDS: METHIMAZOLE 5MG TABLET PO SCH ×3 (09:00→18:21)
[2017-08-19] MEDS ORDERED: IPRATROPIUM/ALBUTEROL 0.5-3(2.5)MG/3ML NEB HHN PRN (09:15)
[2017-08-19] MEDS ORDERED: LIDOCAINE HCL/PF 1% 10 MG/ML 5ML VIAL ONE (09:46)
[2017-08-19] MEDS ORDERED: PIPERACILLIN/TAZ 2.25G PREMIX 50 ML IV SCH (10:00)
[2017-08-19 10:14] LABS: INR 2.7; PARTIAL THROMBOPLASTIN TIME 28.2 sec (23.4-31.0); PROTHROMBIN TIME 28.1 sec (9.4-11.6)
[2017-08-19] MEDS: PANTOPRAZOLE SODIUM 40 MG/VIAL IV SCH (11:35)
[2017-08-19] MEDS ORDERED: VANCOMYCIN 1250MG in DEXTROSE 5% WATER 250ML IV SCH (12:00)
[2017-08-19] MEDS: PREDNISONE 20MG TABLET PO SCH (12:31)
[2017-08-19] MEDS ORDERED: HEPARIN SODIUM 1,000 UNIT/1ML VIAL IV NR (13:30)
[2017-08-19] MEDS ORDERED: SUCCINYLCHOLINE CHLORIDE 200MG/10ML VIAL IV ONE (15:03)
[2017-08-19] MEDS ORDERED: ETOMIDATE 2MG/ML 10ML VIAL IV ONE (15:03)
[2017-08-19 17:40] LABS: BG BASE EXCESS -3.4 mmol/L (-2.0-2.0); BG CARBOXYHEMOGLOBIN 0.8 % (0.5-1.5); BG DEOXYHEMOGLOBIN 0.7 % (0.0-5.0); BG FRACTION INSPIRED OXYGEN 100; BG HCO3 ACT 15.9 mmol/L (22.0-26.0); BG METHEMOGLOBIN 0.3 % (0.0-1.5); BG OXYGEN SATURATION 99.3 % (92.0-98.5); BG OXYHEMOGLOBIN 98.2 % (94.0-97.0); BG PCO2 17.3 mmHg (35.0-45.0); BG PO2 161.2 mmHg (75.0-100.0); BG SAMPLE SITE RIGHT RADIAL; BG TIDAL VOLUME(mL) 600 mL; BG TOTAL HEMOGLOBIN 13.3 g/dL (12.0-18.0); BG VENT MODE VENT - A/C; BG VENT RATE 28 set
[2017-08-19] MEDS: PIPERACILLIN/TAZ 2.25G PREMIX 50 ML IV SCH ×2 (18:23→20:57)
[2017-08-19] MEDS: IPRATROPIUM/ALBUTEROL 0.5-3(2.5)MG/3ML NEB HHN SCH (20:16)
[2017-08-20] VITALS (87 sets, daily range): BP systolic 62–154; BP diastolic 34–105
[2017-08-20] MEDS: IPRATROPIUM/ALBUTEROL 0.5-3(2.5)MG/3ML NEB HHN SCH ×6 (00:06→20:31)
[2017-08-20] MEDS: BLOOD SUGAR DIAGNOSTIC STRIP TEST SCH ×4 (00:19→17:01)
[2017-08-20] MEDS: PIPERACILLIN/TAZ 2.25G PREMIX 50 ML IV SCH ×3 (05:47→21:05)
[2017-08-20] MEDS: INSULIN LISPRO 100 UNITS/ML SUBCUT SCH ×4 (05:47→17:04)
[2017-08-20 06:42] LABS: BASOPHILS % 0.3 % (0.0-2.0); EOSINOPHILS % 0.1 % (0.0-5.0); HEMATOCRIT. 35.2 % (36.0-48.0); HEMOGLOBIN. 11.8 g/dL (12.0-16.0); LYMPHOCYTES % 8.8 % (20.0-50.0); MEAN CORPUSCULAR HEMOGLOBIN 32.6 pg (28.0-32.0); MEAN CORPUSCULAR VOLUME 97.6 fL (81.0-99.0); MEAN PLATELET VOLUME 9.2 fl (7.4-10.4); MONOCYTES % 9.3 % (2.0-8.0); NEUTROPHILS % 81.5 % (40.0-76.0); PLATELET 67 x1000/uL (130-400); RED CELL DISTRIBUTION WIDTH 24.4 % (11.6-14.6)
[2017-08-20 06:46] LABS: INR 1.9; PARTIAL THROMBOPLASTIN TIME 29.4 sec (23.4-31.0); PROTHROMBIN TIME 20.1 sec (9.4-11.6)
[2017-08-20 07:34] LABS: BG BASE EXCESS -0.2 mmol/L (-2.0-2.0); BG CARBOXYHEMOGLOBIN 0.8 % (0.5-1.5); BG DEOXYHEMOGLOBIN 0.1 % (0.0-5.0); BG FRACTION INSPIRED OXYGEN 80; BG HCO3 ACT 19.7 mmol/L (22.0-26.0); BG METHEMOGLOBIN 0.3 % (0.0-1.5); BG OXYGEN SATURATION 99.9 % (92.0-98.5); BG OXYHEMOGLOBIN 98.8 % (94.0-97.0); BG PCO2 20.8 mmHg (35.0-45.0); BG PH 7.594 (7.350-7.450); BG PO2 404.1 mmHg (75.0-100.0); BG SAMPLE SITE RIGHT RADIAL; BG TIDAL VOLUME(mL) 600 mL; BG TOTAL HEMOGLOBIN 12.1 g/dL (12.0-18.0); BG VENT MODE VENT - A/C; BG VENT RATE 20 set
[2017-08-20] MEDS: PROPOFOL 10MG/ML 100ML 100 ML IV PRN (07:40)
[2017-08-20] MEDS: CARVEDILOL 3.125 MG TABLET PO SCH (08:51)
[2017-08-20] MEDS: PANTOPRAZOLE SODIUM 40 MG/VIAL IV SCH (08:58)
[2017-08-20] MEDS: METHIMAZOLE 5MG TABLET PO SCH ×3 (08:59→17:04)
[2017-08-20] MEDS: PREDNISONE 20MG TABLET PO SCH (08:59)
[2017-08-20] MEDS ORDERED: VENL150C52 PO (11:19)
[2017-08-20] MEDS ORDERED: FURO40TA5 PO (11:19)
[2017-08-20] MEDS ORDERED: EPOE200014 IJ (11:19)
[2017-08-20] MEDS ORDERED: WARF1TAB85 PO (11:19)
[2017-08-20] MEDS ORDERED: METO-385 PO (11:19)
[2017-08-20] MEDS: CLOPIDOGREL 75MG TABLET NG SCH (12:14)
[2017-08-20] MEDS: ASPIRIN 81MG TABLET NG SCH (12:14)
[2017-08-20] MEDS: FENTANYL CITRATE/PF 500 MCG in SODIUM CHLORIDE 0.9% 40 ML IV PRN (12:38)
[2017-08-20] MEDS: NOREPINEPHRINE 4 MG in DEXT 5% WATER 246 ML IV PRN (12:51)
[2017-08-20 16:25] LABS: BG CARBOXYHEMOGLOBIN 0.7 % (0.5-1.5); BG DEOXYHEMOGLOBIN 32.6 % (0.0-5.0); BG FRACTION INSPIRED OXYGEN 40; BG HCO3 ACT 20.2 mmol/L (22.0-26.0); BG OXYGEN SATURATION 67.2 % (92.0-98.5); BG OXYHEMOGLOBIN 66.7 % (94.0-97.0); BG PCO2 27.5 mmHg (35.0-45.0); BG PH 7.484 (7.350-7.450); BG PO2 40.2 mmHg (75.0-100.0); BG SAMPLE SITE LEFT RADIAL; BG TIDAL VOLUME(mL) 600 mL; BG TOTAL HEMOGLOBIN 12.5 g/dL (12.0-18.0); BG VENT MODE VENT - A/C
[2017-08-20 17:40] LABS: BG BASE EXCESS -1.3 mmol/L (-2.0-2.0); BG CARBOXYHEMOGLOBIN 0.6 % (0.5-1.5); BG DEOXYHEMOGLOBIN 19.9 % (0.0-5.0); BG HCO3 ACT 20.8 mmol/L (22.0-26.0); BG METHEMOGLOBIN 0.2 % (0.0-1.5); BG OXYGEN SATURATION 79.9 % (92.0-98.5); BG OXYHEMOGLOBIN 79.3 % (94.0-97.0); BG PCO2 27.1 mmHg (35.0-45.0); BG PH 7.502 (7.350-7.450); BG PO2 48.7 mmHg (75.0-100.0); BG SAMPLE SITE RIGHT RADIAL; BG TIDAL VOLUME(mL) 600 mL; BG TOTAL HEMOGLOBIN 11.8 g/dL (12.0-18.0); BG VENT MODE VENT - A/C; BG VENT RATE 16 set
[2017-08-20 17:43] LABS: BG VENT RATE 16 set
[2017-08-20 21:01] LABS: BG BASE EXCESS -1.1 mmol/L (-2.0-2.0); BG CARBOXYHEMOGLOBIN 0.6 % (0.5-1.5); BG DEOXYHEMOGLOBIN 6.6 % (0.0-5.0); BG FRACTION INSPIRED OXYGEN 100; BG METHEMOGLOBIN 0.2 % (0.0-1.5); BG OXYGEN SATURATION 93.3 % (92.0-98.5); BG OXYHEMOGLOBIN 92.6 % (94.0-97.0); BG PCO2 20.6 mmHg (35.0-45.0); BG PH 7.582 (7.350-7.450); BG PO2 72.1 mmHg (75.0-100.0); BG SAMPLE SITE LEFT RADIAL; BG TIDAL VOLUME(mL) 650 mL; BG TOTAL HEMOGLOBIN 12.1 g/dL (12.0-18.0); BG VENT MODE VENT - A/C; BG VENT RATE 22 set
[2017-08-20] MEDS: CARVEDILOL 3.125 MG TABLET NG SCH (21:05)
[2017-08-21] VITALS (35 sets, daily range): BP systolic 100–126; BP diastolic 60–93
[2017-08-21] MEDS: IPRATROPIUM/ALBUTEROL 0.5-3(2.5)MG/3ML NEB HHN SCH ×4 (00:14→11:37)
[2017-08-21] MEDS: BLOOD SUGAR DIAGNOSTIC STRIP TEST SCH ×3 (00:26→11:26)
[2017-08-21] MEDS: FENTANYL CITRATE/PF 500 MCG in SODIUM CHLORIDE 0.9% 40 ML IV PRN (02:30)
[2017-08-21 05:29] LABS: HEMATOCRIT. 33.4 % (36.0-48.0); HEMOGLOBIN. 11.1 g/dL (12.0-16.0); MEAN CORPUSCULAR HEMOGLOBIN 32.4 pg (28.0-32.0); MEAN CORPUSCULAR VOLUME 97.3 fL (81.0-99.0); PLATELET 70 x1000/uL (130-400); RED BLOOD CELL COUNT 3.43 mill/uL (4.2-5.4); RED CELL DISTRIBUTION WIDTH 25.8 % (11.6-14.6)
[2017-08-21] MEDS: INSULIN LISPRO 100 UNITS/ML SUBCUT SCH ×3 (06:00→11:26)
[2017-08-21] MEDS: PIPERACILLIN/TAZ 2.25G PREMIX 50 ML IV SCH (06:13)
[2017-08-21] MEDS: PROPOFOL 10MG/ML 100ML 100 ML IV PRN (06:23)
[2017-08-21 07:22] LABS: BG BASE EXCESS -0.8 mmol/L (-2.0-2.0); BG CARBOXYHEMOGLOBIN 0.6 % (0.5-1.5); BG DEOXYHEMOGLOBIN 0.9 % (0.0-5.0); BG FRACTION INSPIRED OXYGEN 100; BG METHEMOGLOBIN 0.3 % (0.0-1.5); BG OXYGEN SATURATION 99.1 % (92.0-98.5); BG OXYHEMOGLOBIN 98.2 % (94.0-97.0); BG PCO2 17.5 mmHg (35.0-45.0); BG PO2 139.1 mmHg (75.0-100.0); BG SAMPLE SITE RIGHT RADIAL; BG TIDAL VOLUME(mL) 650 mL; BG TOTAL HEMOGLOBIN 12.3 g/dL (12.0-18.0); BG VENT MODE VENT - A/C; BG VENT RATE 22 set
[2017-08-21] MEDS: PREDNISONE 20MG TABLET PO SCH (09:09)
[2017-08-21] MEDS: METHIMAZOLE 5MG TABLET PO SCH (09:09)
[2017-08-21] MEDS: CARVEDILOL 3.125 MG TABLET NG SCH (09:10)
[2017-08-21] MEDS: ASPIRIN 81MG TABLET NG SCH (09:10)
[2017-08-21] MEDS: CLOPIDOGREL 75MG TABLET NG SCH (09:10)
[2017-08-21] MEDS: PANTOPRAZOLE SODIUM 40 MG/VIAL IV SCH (09:10)
[2017-08-21] MEDS ORDERED: IOHEXOL-350 100 ML BOTTLE ONE (09:25)
[2017-08-21] MEDS ORDERED: PROPOFOL 10MG/ML 100ML 100 ML IV PRN (11:00)
[2017-08-21] MEDS ORDERED: SODIUM BICARBONATE 7.5% 0.9 MEQ/ML 50ML SYR IV ONE ×2 (12:07→13:51)
[2017-08-21] MEDS ORDERED: EPINEPHRINE 0.1MG/ML (1:10,000) 10ML SYR ONE ×2 (12:07→13:51)
[2017-08-21] MEDS ORDERED: CEFEPIME 1GM PREMIX 50 ML IV SCH (13:00)
[2017-08-21] MEDS ORDERED: CEFEPIME 1,000 MG in DEXTROSE 5% WATER 50 ML IV SCH (13:00)
[2017-08-21 13:07] LABS: NUCLEATED RED BLOOD CELLS 1 /100 WBC; PLATELET ESTIMATE DECREASED
[2017-08-21] MEDS ORDERED: LIDOCAINE HCL/PF 1% 2ML VIAL ONE (13:40)
[2017-08-21] MEDS ORDERED: EPINEPHRINE 1 MG in SODIUM CHLORIDE 0.9% 249 ML IV PRN (13:45)
[2017-08-21] MEDS ORDERED: CALCIUM CHLORIDE 1GM/10ML SYR IV ONE (13:51)
[2017-08-21] MEDS ORDERED: DEXTROSE 50% WATER 50ML SYRINGE IV ONE (13:51)
[2017-08-21] MEDS ORDERED: VANCOMYCIN 500 MG PREMIX 100 ML IV NR (14:00)
== END 2017-08-21 14:02 | disposition expired | DRG 208 ==
LOC: ER 13:43 → 7WST 16:59 → EDBEDREQ 17:04 → EDBEDREQTM 17:04 → ENRESERV 18:47 → 5EST 08-13 10:45 → CVICU 08-17 11:59
PROVIDERS: ADMIT Internal Medicine; ATTEND Internal Medicine
PROC: 5A1D70Z Performance of Urinary Filtration, Intermittent, Less than 6 Hours Per Day (ICD-10-PCS; 2017-08-11)
PROC: 05HY33Z Insertion of Infusion Device into Upper Vein, Percutaneous Approach (ICD-10-PCS; 2017-08-13)
PROC: B54MZZA Ultrasonography of Right Upper Extremity Veins, Guidance (ICD-10-PCS; 2017-08-13)
PROC: 5A09357 Assistance with Respiratory Ventilation, Less than 24 Consecutive Hours, Continuous Positive Airway Pressure (ICD-10-PCS; 2017-08-13)
PROC: 5A1D70Z Performance of Urinary Filtration, Intermittent, Less than 6 Hours Per Day (ICD-10-PCS; 2017-08-13)
PROC: 5A09357 Assistance with Respiratory Ventilation, Less than 24 Consecutive Hours, Continuous Positive Airway Pressure (ICD-10-PCS; 2017-08-14)
PROC: 5A09457 Assistance with Respiratory Ventilation, 24-96 Consecutive Hours, Continuous Positive Airway Pressure (ICD-10-PCS; 2017-08-15)
PROC: 5A1D70Z Performance of Urinary Filtration, Intermittent, Less than 6 Hours Per Day (ICD-10-PCS; 2017-08-15)
PROC: 30233L1 Transfusion of Nonautologous Fresh Plasma into Peripheral Vein, Percutaneous Approach (ICD-10-PCS; 2017-08-16)
PROC: 30233K1 Transfusion of Nonautologous Frozen Plasma into Peripheral Vein, Percutaneous Approach (ICD-10-PCS; 2017-08-16)
PROC: 0W993ZZ Drainage of Right Pleural Cavity, Percutaneous Approach (ICD-10-PCS; 2017-08-17)
PROC: 5A1D70Z Performance of Urinary Filtration, Intermittent, Less than 6 Hours Per Day (ICD-10-PCS; 2017-08-18)
PROC: 0BH17EZ Insertion of Endotracheal Airway into Trachea, Via Natural or Artificial Opening (ICD-10-PCS; principal; 2017-08-19)
PROC: 5A1945Z Respiratory Ventilation, 24-96 Consecutive Hours (ICD-10-PCS; 2017-08-19)
PROC: 06HY33Z Insertion of Infusion Device into Lower Vein, Percutaneous Approach (ICD-10-PCS; 2017-08-19)
PROC: B54BZZA Ultrasonography of Right Lower Extremity Veins, Guidance (ICD-10-PCS; 2017-08-19)
PROC: 5A1D70Z Performance of Urinary Filtration, Intermittent, Less than 6 Hours Per Day (ICD-10-PCS; 2017-08-19)
PROC: 5A12012 Performance of Cardiac Output, Single, Manual (ICD-10-PCS; 2017-08-21)
DX: J96.21 Acute and chronic respiratory failure with hypoxia (principal); L89.323 Pressure ulcer of left buttock, stage 3; L89.313 Pressure ulcer of right buttock, stage 3; L89.153 Pressure ulcer of sacral region, stage 3; I50.23 Acute on chronic systolic (congestive) heart failure; N18.6 End stage renal disease; I13.2 Hypertensive heart and chronic kidney disease with heart failure and with stage 5 chronic kidney disease, or end stage renal disease; R57.9 Shock, unspecified; D68.9 Coagulation defect, unspecified; I34.0 Nonrheumatic mitral (valve) insufficiency; I25.5 Ischemic cardiomyopathy; I25.10 Atherosclerotic heart disease of native coronary artery without angina pectoris; C50.912 Malignant neoplasm of unspecified site of left female breast; E83.51 Hypocalcemia; E03.9 Hypothyroidism, unspecified; D64.9 Anemia, unspecified; E78.00 Pure hypercholesterolemia, unspecified; E78.5 Hyperlipidemia, unspecified; E87.5 Hyperkalemia; F41.9 Anxiety disorder, unspecified; I27.20 Pulmonary hypertension, unspecified; J44.9 Chronic obstructive pulmonary disease, unspecified; I95.1 Orthostatic hypotension; G90.8 Other disorders of autonomic nervous system; E11.40 Type 2 diabetes mellitus with diabetic neuropathy, unspecified; S09.90XA Unspecified injury of head, initial encounter; E04.1 Nontoxic single thyroid nodule; E05.90 Thyrotoxicosis, unspecified without thyrotoxic crisis or storm; I46.9 Cardiac arrest, cause unspecified; W18.39XA Other fall on same level, initial encounter; I27.21 Secondary pulmonary arterial hypertension; E11.649 Type 2 diabetes mellitus with hypoglycemia without coma; D69.6 Thrombocytopenia, unspecified; M50.30 Other cervical disc degeneration, unspecified cervical region; E11.21 Type 2 diabetes mellitus with diabetic nephropathy; Z95.5 Presence of coronary angioplasty implant and graft; Z99.2 Dependence on renal dialysis; Z88.6 Allergy status to analgesic agent; Y93.89 Activity, other specified; Z79.02 Long term (current) use of antithrombotics/antiplatelets; Z86.74 Personal history of sudden cardiac arrest; Z92.21 Personal history of antineoplastic chemotherapy; I25.2 Old myocardial infarction; Z99.81 Dependence on supplemental oxygen; Z79.899 Other long term (current) drug therapy; Z88.8 Allergy status to other drugs, medicaments and biological substances; Y92.89 Other specified places as the place of occurrence of the external cause; Y99.8 Other external cause status
CPT/HCPCS: 32555; 36415; 36569; 36600; 70450; 71045; 71275; 76604; 76937; 80048; 80053; 80061; 80202; 82375; 82533; 82550; 82553; 82805; 82962; 83036; 83735; 84439; 84443; 84478; 84481; 84484; 85025; 85384; 85610; 85730; 86850; 86900; 86927; 87040; 87070; 93005; 93306; 93970; 94002; 94003; 94640; 94660; 99285; A6261; C1725; C1752; C1893; C9113; J0330; J0692; J1200; J1644; J1720; J1815; J2405; J2543; J2704; J3010; J3370; J3430; J3490; J7030; J7040; J7050; J7060; J7512; J7620; P9017; Q9967